=== PATIENT | female | born 1985 | race American Indian/Alaskan Native ===

== ENCOUNTER 2021-03-30 11:03 | Inpatient (IN) | payer MEDICAID, OTHER ==
[2021-03-30] MEDS ORDERED: Sodium Chloride 0.9% 10 ML Syringe FLUSH PRN (11:19)
[2021-03-30] MEDS ORDERED: Sodium Chloride 0.9% 1,000 ML IV ONE (11:21)
[2021-03-30] MEDS ORDERED: Metoclopramide 10 MG/2 ML SDV IVPUSH ONE (11:21)
--- NOTE | 2021-03-30 11:29 | EDM.PDOC ---
ED HPI GENERAL MEDICAL PROBLEM - General Chief Complaint: General Stated Complaint: john amb Time Seen by Provider: 03/30/21 11:10 Source of Information: Reports: Patient, RN Notes Reviewed History Limitations: Reports: No Limitations - History of Present Illness INITIAL COMMENTS - FREE TEXT/NARRATIVE: Patient is a 35-year-old female who presents to the ER via [facility] for the evaluation of her fever. States she has a history of psoriasis, and she noted the area on her right plantar surface and foot seemed to be oozing yellow substance last week and she went to the doctor for management, and she states that the doctor did not really address her foot, but told she had a viral upper respiratory illness and told her to follow-up with dermatology. Patient states for the last 5 days she has been dealing with a fever as high as 105 F at home. Has been using Tylenol and ibuprofen. She states that it seems to break the fever but then the fever come straight back. She did develop nausea with associated vomiting today. States that she has not really had much of an appetite for the last 2 days. She ate about half of a peanut butter and jelly s andwich yesterday and that is about all she has eaten. Other than the fever, nausea and vomiting, she has what she characterizes as a dry intermittent cough but is not very bothersome, no shortness of breath, and states that she had maybe some diarrhea yesterday. Other than the psoriasis she denies any past medical history. Patient has psoriasis-like lesions on her right foot, and bilateral palmar surfaces of her hands. States she has not been using her cream on her hands for the past few days. foot Pain Score (Numeric/FACES): 4 - Related Data Allergies Allergy/AdvReac Type Severity Reaction Status Date / Time latex Allergy Anaphylactic Verified 03/30/21 11:15 Shock Home Meds: Home Meds Multivit No46/Iron/Folate6/Dha [Prenate Essential Softgel] 1 tab PO DAILY 03/30/21 [History] Ubidecarenone [Co Q-10] 200 mg PO DAILY 03/30/21 [History] Venlafaxine [Effexor] 37.5 mg PO DAILY 03/30/21 [History] atenoloL [Atenolol] 50 mg PO DAILY 03/30/21 [History] hydroCHLOROthiazide [Hydrochlorothiazide] 25 mg PO DAILY 03/30/21 [History] lisinopriL [Lisinopril] 25 mg PO DAILY 03/30/21 [History] Past Medical History Cardiovascular History: Reports: Hypertension Psychiatric History: Reports: Depression Dermatologic History: Reports: Psoriasis Social & Family History - Tobacco Use Tobacco Use Status *Q: Former Tobacco User Used Tobacco, but Quit: Yes Month/Year Tobacco Last Used: 03/17/2021 - Recreational Drug Use Recreational Drug Use: No ED ROS GENERAL - Review of Systems Review Of Systems: Comprehensive ROS is negative, except as noted in HPI. ED EXAM, GENERAL - Physical Exam Exam: See Below Exam Limited By: No Limitations General Appearance: Alert, WD/WN, No Apparent Distress Respiratory/Chest: No Respiratory Distress, Lungs Clear, Normal Breath Sounds, No Accessory Muscle Use, Chest Non-Tender Cardiovascular: Normal Peripheral Pulses, Regular Rate, Rhythm, No Edema Peripheral Pulses: 2+: Radial (L), Radial (R) Neurological: Alert, Oriented, Normal Cognition, No Motor/Sensory Deficits Psychiatric: Normal Affect, Normal Mood Skin Exam: Warm, Dry, Normal Color, No Rash, Increased Warmth (To the patient's plantar surface of her foot. Patient has scaling lesions, with an open area on the pad of her right great toe, multiple other areas that seem to be open but not necessarily oozing, again crusting is noted. Few open lesions on palmar surface of hands, seem to crusting but no oozing) Course - Vital Signs Last Recorded V/S: Last Vital Signs Temp 98.4 F 03/30/21 11:09 Pulse 116 H 03/30/21 11:09 Resp 18 03/30/21 11:09 BP 118/81 03/30/21 11:09 Pulse Ox 98 03/30/21 11:09 - Orders/Labs/Meds Orders: Active Orders 24 hr Category Date Time Status Chest 1V Frontal [CR] Stat Exams 03/30/21 11:23 Ordered BLOOD CULTURE [MREF] Stat Lab 03/30/21 11:20 Ordered BLOOD CULTURE [MREF] Stat Lab 03/30/21 11:20 Ordered UA W/JUAN RFLX IF INDICATED [URIN] Stat Lab 03/30/21 11:20 Ordered Potassium Chloride [KCl in Water 10 MEQ/100 ML] 10 meq Med 03/30/21 12:15 Ordered Premix Bag 1 bag IV Q1H Sodium Chloride 0.9% [Saline Flush] Med 03/30/21 11:19 Ordered 10 ml FLUSH ASDIRECTED PRN cefTRIAXone [Rocephin] 2 gm Med 03/30/21 12:53 Ordered Sodium Chloride 0.9% [Normal Saline AdvBag] 100 ml IV ONETIME Blood Culture x2 Reflex Set [OM.PC] Stat Oth 03/30/21 11:20 Ordered Saline Lock Insert [OM.PC] Stat Oth 03/30/21 11:20 Ordered Medication Orders Potassium Chloride 10 meq/ (Premix) 100 mls @ 100 mls/hr IV Q1H OLGA Stop: 03/30/21 16:14 Last Admin: 03/30/21 12:14 Dose: 100 mls/hr Documented by: MARISA Ceftriaxone Sodium 2 gm/ (Sodium Chloride) 100 mls @ 200 mls/hr IV ONETIME ONE Stop: 03/30/21 13:22 Sodium Chloride (Sodium Chloride 0.9% 10 Ml Syringe) 10 ml FLUSH ASDIRECTED PRN PRN Reason: Keep Vein Open Last Admin: 03/30/21 11:33 Dose: 10 ml Documented by: MARISA Labs: Laboratory Tests 03/30/21 03/30/21 03/30/21 Range/Units 10:59 10:59 10:59 WBC 10.56 H (3.98-10.04) K/mm3 RBC 3.77 L (3.98-5.22) M/mm3 Hgb 10.7 L (11.2-15.7) gm/dl Hct 32.9 L (34.1-44.9) % MCV 87.3 (79.4-94.8) fl MCH 28.4 (25.6-32.2) pg MCHC 32.5 (32.2-35.5) g/dl RDW Std Deviation 45.0 (36.4-46.3) fL Plt Count 257 (182-369) K/mm3 MPV 9.9 (9.4-12.3) fl Neutrophils % (Manual) 75 H (40-60) % Band Neutrophils % 0 (0-10) % Lymphocytes % (Manual) 10 L (20-40) % Atypical Lymphs % 0 % Monocytes % (Manual) 15 H (2-10) % Eosinophils % (Manual) 0 L (0.7-5.8) % Basophils % (Manual) 0 L (0.1-1.2) Platelet Estimate Adequate RBC Morph Comment Normal PT 11.7 (9.7-12.0) SECONDS INR 1.06 Sodium 133 L (136-145) mEq/L Potassium 2.6 L (3.5-5.1) mEq/L Chloride 96 L (98-107) mEq/L Carbon Dioxide 28 (21-32) mEq/L Anion Gap 11.6 (5-15) BUN 8 (7-18) mg/dL Creatinine 0.8 (0.55-1.02) mg/dL Est Cr Clr Drug Dosing 77.63 mL/min Estimated GFR (MDRD) > 60 (>60) mL/min BUN/Creatinine Ratio 10.0 L (14-18) Glucose 125 H (70-99) mg/dL Lactic Acid (0.4-2.0) mmol/L Calcium 8.1 L (8.5-10.1) mg/dL Total Bilirubin 0.9 (0.2-1.0) mg/dL AST 35 (15-37) U/L ALT 43 (14-59) U/L Alkaline Phosphatase 70 (46-116) U/L C-Reactive Protein 27.7 H* (<1.0) mg/dL Total Protein 7.3 (6.4-8.2) g/dl Albumin 2.8 L (3.4-5.0) g/dl Globulin 4.5 gm/dL Albumin/Globulin Ratio 0.6 L (1-2) Influenza Type A RNA (NEGATIVE) Influenza Type B RNA (NEGATIVE) SARS-CoV-2 RNA (LUCIA) (NEGATIVE) 03/30/21 03/30/21 Range/Units 11:40 12:08 WBC (3.98-10.04) K/mm3 RBC (3.98-5.22) M/mm3 Hgb (11.2-15.7) gm/dl Hct (34.1-44.9) % MCV (79.4-94.8) fl MCH (25.6-32.2) pg MCHC (32.2-35.5) g/dl RDW Std Deviation (36.4-46.3) fL Plt Count (182-369) K/mm3 MPV (9.4-12.3) fl Neutrophils % (Manual) (40-60) % Band Neutrophils % (0-10) % Lymphocytes % (Manual) (20-40) % Atypical Lymphs % % Monocytes % (Manual) (2-10) % Eosinophils % (Manual) (0.7-5.8) % Basophils % (Manual) (0.1-1.2) Platelet Estimate RBC Morph Comment PT (9.7-12.0) SECONDS INR Sodium (136-145) mEq/L Potassium (3.5-5.1) mEq/L Chloride (98-107) mEq/L Carbon Dioxide (21-32) mEq/L Anion Gap (5-15) BUN (7-18) mg/dL Creatinine (0.55-1.02) mg/dL Est Cr Clr Drug Dosing mL/min Estimated GFR (MDRD) (>60) mL/min BUN/Creatinine Ratio (14-18) Glucose (70-99) mg/dL Lactic Acid 1.5 (0.4-2.0) mmol/L Calcium (8.5-10.1) mg/dL Total Bilirubin (0.2-1.0) mg/dL AST (15-37) U/L ALT (14-59) U/L Alkaline Phosphatase (46-116) U/L C-Reactive Protein (<1.0) mg/dL Total Protein (6.4-8.2) g/dl Albumin (3.4-5.0) g/dl Globulin gm/dL Albumin/Globulin Ratio (1-2) Influenza Type A RNA Negative (NEGATIVE) Influenza Type B RNA Negative (NEGATIVE) SARS-CoV-2 RNA (LUCIA) Negative (NEGATIVE) Meds: Medications Generic Name Dose Route Start Last Admin Trade Name Freq PRN Reason Stop Dose Admin Potassium Chloride 10 meq/ 100 mls @ 100 mls/hr 03/30/21 12:15 03/30/21 12:14 Premix IV 03/30/21 16:14 100 mls/hr Q1H OLGA Administration Ceftriaxone Sodium 2 gm/ 100 mls @ 200 mls/hr 03/30/21 12:53 Sodium Chloride IV 03/30/21 13:22 ONETIME ONE Sodium Chloride 10 ml 03/30/21 11:19 03/30/21 11:33 Sodium Chloride 0.9% 10 Ml Syringe FLUSH 10 ml ASDIRECTED PRN Administration Keep Vein Open Discontinued Medications Generic Name Dose Route Start Last Admin Trade Name Breanna PRN Reason Stop Dose Admin Sodium Chloride 1,000 mls @ 999 mls/hr 03/30/21 11:21 03/30/21 11:33 Normal Saline IV 03/30/21 12:21 999 mls/hr ONETIME ONE Administration Metoclopramide HCl 10 mg 03/30/21 11:21 03/30/21 11:33 Metoclopramide 10 Mg/2 Ml Sdv IVPUSH 03/30/21 11:22 10 mg ONETIME ONE Administration Potassium Chloride 40 meq 03/30/21 12:01 03/30/21 12:14 Potassium Chloride 20 Meq Tab.Er PO 03/30/21 12:02 40 meq ONETIME ONE Administration - Re-Assessments/Exams Free Text/Narrative Re-Assessment/Exam: 03/30/21 11:29 Patient presents to the ER for evaluation of her fever. We will go ahead and do more of a septic work-up for evaluation to include lactic acid, blood cultures, basic labs; CBC, CMP, CRP, will get a urine and a chest x-ray to rule out infection in those areas however I am fairly certain that it is her foot that is a source of infection. Also get a COVID-19 swab as the patient will likely need hospitalization. We will give her some fluids and Reglan at this time due to her not eating or drinking much in the past day or 2. She was given 4 mg Zofran in the ambulance but states that this did not seem to help much. 03/30/21 12:02 White cell count is elevated at 10.5 with 75% neutrophils on the auto differential. Metabolic panel impressive for a low potassium at 2.6, and I did order 40 mEq oral and 40 mEq IV at this time. Patient's CRP is markedly elevated at 27.7. Still some labs pending at this time. 03/30/21 12:43 Lactic acid is within normal limits at 1.5. 03/30/21 13:00 Was able to talk with Dr. Parra our hospitalist, and he will accept the patient for cellulitis and hypokalemia. I do believe the hypokalemia is secondary to hydrochlorothiazide therapy. We will go ahead and give the patient 2 g Rocephin for management. We will await Covid screen to see about nursing room placement and then get her transferred to the hospital for further management. Departure - Departure Time of Disposition: 13:00 Disposition: Admitted As Inpatient 66 Condition: Good Clinical Impression: Cellulitis of foot, right, Hypokalemia - Discharge Information Forms: ED Department Discharge Sepsis Event Note (ED) - Evaluation Sepsis Screening Result: No Definite Risk - Focused Exam Vital Signs: Vital Signs Temp Pulse Resp BP Pulse Ox 03/30/21 11:09 98.4 F 116 H 18 118/81 98 - My Orders Last 24 Hours: My Active Orders 03/30/21 11:19 Sodium Chloride 0.9% [Saline Flush] 10 ml FLUSH ASDIRECTED PRN 03/30/21 11:20 BLOOD CULTURE [MREF] Stat BLOOD CULTURE [MREF] Stat UA W/JUAN RFLX IF INDICATED [URIN] Stat Blood Culture x2 Reflex Set [OM.PC] Stat Saline Lock Insert [OM.PC] Stat 03/30/21 11:23 Chest 1V Frontal [CR] Stat 03/30/21 12:15 Potassium Chloride [KCl in Water 10 MEQ/100 ML] 10 meq Premix Bag 1 bag IV Q1H 03/30/21 12:53 cefTRIAXone [Rocephin] 2 gm Sodium Chloride 0.9% [Normal Saline AdvBag] 100 ml IV ONETIME - Assessment/Plan Last 24 Hours: My Active Orders 03/30/21 11:19 Sodium Chloride 0.9% [Saline Flush] 10 ml FLUSH ASDIRECTED PRN 03/30/21 11:20 BLOOD CULTURE [MREF] Stat BLOOD CULTURE [MREF] Stat UA W/JUAN RFLX IF INDICATED [URIN] Stat Blood Culture x2 Reflex Set [OM.PC] Stat Saline Lock Insert [OM.PC] Stat 03/30/21 11:23 Chest 1V Frontal [CR] Stat 03/30/21 12:15 Potassium Chloride [KCl in Water 10 MEQ/100 ML] 10 meq Premix Bag 1 bag IV Q1H 03/30/21 12:53 cefTRIAXone [Rocephin] 2 gm Sodium Chloride 0.9% [Normal Saline AdvBag] 100 ml IV ONETIME
[2021-03-30] MEDS ORDERED: Potassium Chloride 20 MEQ Tab.ER PO ONE (12:01)
[2021-03-30] MEDS: Potassium Chloride 10 MEQ in Premix Bag 1 BAG IV SCH ×4 (12:14→15:22)
[2021-03-30] MEDS ORDERED: cefTRIAXone 2 GM in Sodium Chloride 0.9% 100 ML IV ONE (12:53)
[2021-03-30 12:55] LABS: CORONAVIRUS COVID-19 NAA NEGATIVE (NEGATIVE)
--- NOTE | 2021-03-30 14:58 | CR ---
Chest: Portable view of the chest was obtained. Comparison: No prior chest imaging is available. Heart size and mediastinum are within normal limits. Lungs are clear with no acute parenchymal change. Bony structures show nothing acute. Impression: 1. Nothing acute is seen on portable chest x-ray. Diagnostic code #1
[2021-03-30] MEDS ORDERED: Acetaminophen 325 MG Tab PO PRN (15:29)
[2021-03-30] MEDS ORDERED: Ibuprofen 600 MG Tab PO PRN (15:29)
[2021-03-30] MEDS ORDERED: Temazepam 15 MG Cap PO PRN (15:29)
--- NOTE | 2021-03-30 15:29 | PCM.HP.2 ---
H&P History of Present Illness - General Date of Service: 03/30/21 Admit Problem/Dx: Admission Diagnosis/Problem Admission Diagnosis/Problem Cellulitis - History of Present Illness Initial Comments - Free Text/Narative: 35-year-old female with history of severe psoriasis, followed by dermatology in [place], presents to the emergency department via [facility] for evaluation of fever. Patient states proxy 1 week ago she put Vaseline on her feet for her psoriasis as directed by her pay agent, but she did not wrap it with Saran wrap. She states that she must have scratched the bottom of her foot in the middle the night and tore off a piece of the psoriatic plaque. She has had worsening pain since then and a fever as high as 105 at home. She was seen at the walk-in clinic, but not started on any treatment. She has been using Tylenol and ibuprofen alternately for the fever. 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 Now the foot is exquisitely tender especially over the ball of the right foot. She has yellow discharge emanating from the ball of foot. Patient does take lisinopril, hydrochlorothiazide, And atenolol for her hypertension. She was significantly low and her potassium. Potassium was 2.6. foot Pain Score (Numeric/FACES): 4 - Related Data Allergies/Adverse Reactions: Allergies Allergy/AdvReac Type Severity Reaction Status Date / Time bee pollen Allergy Hives Verified 03/30/21 14:21 Influenza Virus Vaccines Allergy Other Verified 03/30/21 14:21 latex Allergy Anaphylactic Verified 03/30/21 11:15 Shock Home Medications: Home Meds Venlafaxine HCl [Venlafaxine ER] 37.5 mg PO DAILY 03/30/21 [History] atenoloL [Atenolol] 50 mg PO DAILY 03/30/21 [History] hydroCHLOROthiazide [Hydrochlorothiazide] 25 mg PO DAILY 03/30/21 [History] lisinopriL [Lisinopril] 25 mg PO DAILY 03/30/21 [History] Past Medical History HEENT History: Reports: Other (See Below) Other HEENT History: wears glasses Cardiovascular History: Reports: Hypertension Gastrointestinal History: Reports: None 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 Dermatologic History: Reports: Psoriasis - Past Surgical History HEENT Surgical History: Reports: None Cardiovascular Surgical History: Reports: None GI Surgical History: Reports: Appendectomy Dermatological Surgical History: Reports: None Social & Family History - Family History Family Medical History: No Pertinent Family History - Tobacco Use Tobacco Use Status *Q: Former Tobacco User Used Tobacco, but Quit: Yes Month/Year Tobacco Last Used: February 2021 - Caffeine Use Caffeine Use: Reports: Coffee, Energy Drinks - Recreational Drug Use Recreational Drug Use: No H&P Review of Systems - Review of Systems: Review Of Systems: Comprehensive ROS is negative, except as noted in HPI. Exam - Exam Exam: See Below - Vital Signs Vital Signs: Last Vital Signs Temp 99.0 F 03/30/21 14:18 Pulse 107 H 03/30/21 14:18 Resp 18 03/30/21 14:18 BP 121/67 03/30/21 14:18 Pulse Ox 98 03/30/21 14:18 Weight: 239 lb 8 oz - Exam Quality Assessment: No: Supplemental Oxygen General: Alert, Oriented, 4 HEENT: Conjunctiva Clear, Hearing Intact, Mucosa Moist & [place], Normal Nasal Septum Neck: Supple, Trachea Midline, 2 Lungs: Clear to Auscultation, Normal Respiratory Effort Cardiovascular: Regular Rate, Regular Rhythm GI/Abdominal Exam: Normal Bowel Sounds, Soft, Non-Tender, No Organomegaly, No Di stention, No Abnormal Bruit, No Mass Extremities: No Pedal Edema, Normal Capillary Refill, Other (Psoriatic plaques on both hands and feet. Right bottom of her foot shows erythematous area at the ball of the foot with exquisite tenderness. There is a pinpoint area that sug gest some purulent discharge but I was unable to express it at this time. The area does feel somewhat fluctuant.) Neuro Extensive - Mental Status: Alert, Oriented x3, Normal Mood/Affect, Normal Cognition, Memory Intact Psychiatric: Alert, Normal Affect, Normal Mood - Patient Data Lab Results Last 24 hrs: Laboratory Results - last 24 hr 03/30/21 03/30/21 03/30/21 Range/Units 10:59 10:59 10:59 WBC 10.56 H (3.98-10.04) K/mm3 RBC 3.77 L (3.98-5.22) M/mm3 Hgb 10.7 L (11.2-15.7) gm/dl Hct 32.9 L (34.1-44.9) % MCV 87.3 (79.4-94.8) fl MCH 28.4 (25.6-32.2) pg MCHC 32.5 (32.2-35.5) g/dl RDW Std Deviation 45.0 (36.4-46.3) fL Plt Count 257 (182-369) K/mm3 MPV 9.9 (9.4-12.3) fl Neutrophils % (Manual) 75 H (40-60) % Band Neutrophils % 0 (0-10) % Lymphocytes % (Manual) 10 L (20-40) % Atypical Lymphs % 0 % Monocytes % (Manual) 15 H (2-10) % Eosinophils % (Manual) 0 L (0.7-5.8) % Basophils % (Manual) 0 L (0.1-1.2) Platelet Estimate Adequate RBC Morph Comment Normal PT 11.7 (9.7-12.0) SECONDS INR 1.06 Sodium 133 L (136-145) mEq/L Potassium 2.6 L (3.5-5.1) mEq/L Chloride 96 L (98-107) mEq/L Carbon Dioxide 28 (21-32) mEq/L Anion Gap 11.6 (5-15) BUN 8 (7-18) mg/dL Creatinine 0.8 (0.55-1.02) mg/dL Est Cr Clr Drug Dosing 77.63 mL/min Estimated GFR (MDRD) > 60 (>60) mL/min BUN/Creatinine Ratio 10.0 L (14-18) Glucose 125 H (70-99) mg/dL Lactic Acid (0.4-2.0) mmol/L Calcium 8.1 L (8.5-10.1) mg/dL Total Bilirubin 0.9 (0.2-1.0) mg/dL AST 35 (15-37) U/L ALT 43 (14-59) U/L Alkaline Phosphatase 70 (46-116) U/L C-Reactive Protein 27.7 H* (<1.0) mg/dL Total Protein 7.3 (6.4-8.2) g/dl Albumin 2.8 L (3.4-5.0) g/dl Globulin 4.5 gm/dL Albumin/Globulin Ratio 0.6 L (1-2) Influenza Type A RNA (NEGATIVE) Influenza Type B RNA (NEGATIVE) SARS-CoV-2 RNA (LUCIA) (NEGATIVE) 03/30/21 03/30/21 Range/Units 11:40 12:08 WBC (3.98-10.04) K/mm3 RBC (3.98-5.22) M/mm3 Hgb (11.2-15.7) gm/dl Hct (34.1-44.9) % MCV (79.4-94.8) fl MCH (25.6-32.2) pg MCHC (32.2-35.5) g/dl RDW Std Deviation (36.4-46.3) fL Plt Count (182-369) K/mm3 MPV (9.4-12.3) fl Neutrophils % (Manual) (40-60) % Band Neutrophils % (0-10) % Lymphocytes % (Manual) (20-40) % Atypical Lymphs % % Monocytes % (Manual) (2-10) % Eosinophils % (Manual) (0.7-5.8) % Basophils % (Manual) (0.1-1.2) Platelet Estimate RBC Morph Comment PT (9.7-12.0) SECONDS INR Sodium (136-145) mEq/L Potassium (3.5-5.1) mEq/L Chloride (98-107) mEq/L Carbon Dioxide (21-32) mEq/L Anion Gap (5-15) BUN (7-18) mg/dL Creatinine (0.55-1.02) mg/dL Est Cr Clr Drug Dosing mL/min Estimated GFR (MDRD) (>60) mL/min BUN/Creatinine Ratio (14-18) Glucose (70-99) mg/dL Lactic Acid 1.5 (0.4-2.0) mmol/L Calcium (8.5-10.1) mg/dL Total Bilirubin (0.2-1.0) mg/dL AST (15-37) U/L ALT (14-59) U/L Alkaline Phosphatase (46-116) U/L C-Reactive Protein (<1.0) mg/dL Total Protein (6.4-8.2) g/dl Albumin (3.4-5.0) g/dl Globulin gm/dL Albumin/Globulin Ratio (1-2) Influenza Type A RNA Negative (NEGATIVE) Influenza Type B RNA Negative (NEGATIVE) SARS-CoV-2 RNA (LUCIA) Negative (NEGATIVE) Result Diagrams: 03/30/21 10:59 03/30/21 10:59 Sepsis Event Note - Evaluation Sepsis Screening Result: No Definite Risk - Focused Exam Vital Signs: Vital Signs Temp Temp Pulse Pulse Resp BP BP 03/30/21 14:18 99.0 F 107 H 18 121/67 03/30/21 11:09 98.4 F 116 H 18 118/81 Pulse Ox 03/30/21 14:18 98 03/30/21 11:09 98 - Problem List (1) Hypertension SNOMED Code(s): 59819830 ICD Code: I10 - ESSENTIAL (PRIMARY) HYPERTENSION Status: Acute Current Visit: Yes (2) Cellulitis of foot, right SNOMED Code(s): 840586751 ICD Code: L03.115 - CELLULITIS OF RIGHT LOWER LIMB Status: Acute Current Visit: Yes (3) Hypokalemia SNOMED Code(s): 99091396 ICD Code: E87.6 - HYPOKALEMIA Status: Acute Current Visit: Yes Problem List Initiated/Reviewed/Updated: Yes Orders Last 24hrs: Active Orders 24 hr Category Date Time Status Admission Status [Patient Status] [ADT] Routine ADT 03/30/21 13:18 Active BLOOD CULTURE [MREF] Stat Lab 03/30/21 11:40 Received BLOOD CULTURE [MREF] Stat Lab 03/30/21 11:43 Received UA W/JUAN RFLX IF INDICATED [URIN] Stat Lab 03/30/21 11:20 Ordered Potassium Chloride [KCl in Water 10 MEQ/100 ML] 10 meq Med 03/30/21 12:15 Active Premix Bag 1 bag IV Q1H Sodium Chloride 0.9% [Saline Flush] Med 03/30/21 11:19 Active 10 ml FLUSH ASDIRECTED PRN Blood Culture x2 Reflex Set [OM.PC] Stat Oth 03/30/21 11:20 Ordered Saline Lock Insert [OM.PC] Stat Oth 03/30/21 11:20 Ordered Medication Orders Potassium Chloride 10 meq/ (Premix) 100 mls @ 100 mls/hr IV Q1H OLGA Stop: 03/30/21 16:14 Last Admin: 03/30/21 15:22 Dose: 100 mls/hr Documented by: Infusion: 03/30/21 15:20 Dose: 100 mls/hr Documented by: Admin: 03/30/21 14:20 Dose: 100 mls/hr Documented by: Infusion: 03/30/21 14:13 Dose: 100 mls/hr Documented by: Admin: 03/30/21 13:13 Dose: 100 mls/hr Documented by: Infusion: 03/30/21 13:13 Dose: 100 mls/hr Documented by: Admin: 03/30/21 12:14 Dose: 100 mls/hr Documented by: MARISA Sodium Chloride (Sodium Chloride 0.9% 10 Ml Syringe) 10 ml FLUSH ASDIRECTED PRN PRN Reason: Keep Vein Open Last Admin: 03/30/21 11:33 Dose: 10 ml Documented by: MARISA Assessment/Plan Comment:: 35-year-old female with history of hypertension and psoriasis presents to the emergency department with right-sided foot pain, fever, and discharge. Cellulitis of the plantar surface of the right foot * Exquisitely tender and erythematous and warm right ball of the foot. * WBC of 10.6 with 75% neutrophils and no bands. CRP 27.7. Normal lactic acid of 1.5. * Blood cultures and Rocephin started in the emergency department. Hypokalemia * Potassium 2.6 * Likely secondary to poor oral intake and thiazide diuretic * Given 40 mEq p.o. in the emergency department followed by 40 mEq IV Hypertension * Home medications include atenolol, lisinopril, and hydrochlorothiazide * She did not receive her medications this morning. Plan * Admit to medical floor for IV antibiotics * X-ray right foot * May need to consult orthopedics * Await blood cultures * Continue Rocephin * PT for wound therapy * Recheck CBC, CMP, CRP in the morning * Check hemoglobin A1c. Patient states she has family history of diabetes * VTE prophylaxis with Lovenox * CODE STATUS: Full code - Mortality Measure Prognosis:: Good
[2021-03-30] MEDS ORDERED: Hydrochlorothiazide 25 MG Tab PO SCH (15:45)
[2021-03-30] MEDS ORDERED: Venlafaxine 37.5 MG Tab PO SCH (15:45)
[2021-03-30] MEDS: Lisinopril 10 MG Tab PO SCH (15:53)
[2021-03-30] MEDS: Atenolol 50 MG Tab PO SCH (15:54)
[2021-03-30] MEDS: Venlafaxine 37.5 MG Cap.ER PO SCH (16:37)
--- NOTE | 2021-03-30 17:48 | CR ---
Right foot: 2 views of the right foot were obtained. Comparison: No prior foot exam is available. Plantar spur is noted. Minimal spur is noted at the attachment of the Achilles tendon to the calcaneus. Joint spaces are fairly well preserved. No focal erosions are seen. No acute fracture or other bony abnormality is appreciated. Impression: 1. Calcaneal spurs. 2. Two-view right foot study is otherwise unremarkable. Diagnostic code #2
[2021-03-30] MEDS: Bacitracin Oint 15 GM Tube TOP SCH (21:06)
[2021-03-30] MEDS: Calcium Carbonate 500 MG Tab.Chew PO PRN (21:07)
[2021-03-31 08:04] LABS: HEMOGLOBIN A1C 6.2 %
--- NOTE | 2021-03-31 08:06 | PCM.PN ---
<Candido Chicas - Last Filed: 03/31/21 12:03> - General Info Date of Service: 03/31/21 Admission Dx/Problem (Free Text): Admission Diagnosis/Problem Admission Diagnosis/Problem Cellulitis Functional Status: Reports: Pain Controlled, Tolerating Diet, Ambulating, Urinating. Denies: New Symptoms - Review of Systems General: Reports: No Symptoms. Denies: Fever, Weakness, Fatigue, Malaise, Chills HEENT: Reports: Headaches. Denies: Sore Throat Pulmonary: Reports: No Symptoms. Denies: Shortness of Breath, Cough, Sputum, Wheezing Cardiovascular: Reports: No Symptoms. Denies: Chest Pain, Palpitations, Dyspnea on Exertion, Edema, Lightheadedness Gastrointestinal: Reports: No Symptoms. Denies: Abdominal Pain, Constipation, Diarrhea, Nausea, Vomiting Genitourinary: Reports: No Symptoms. Denies: Pain Musculoskeletal: Reports: Foot Pain. Denies: Leg Pain, Joint Pain, Joint Swelling Skin: Reports: No Symptoms Neurological: Reports: Difficulty Walking. Denies: Confusion, Dizziness, Headache, Numbness, Pre-Existing Deficit, Seizure, Syncope, Tingling, Trouble Speaking, Weakness, Change in Speech, Gait Disturbance Psychiatric: Reports: No Symptoms - Patient Data Vitals - Most Recent: Last Vital Signs Temp 98.2 F 03/31/21 03:47 Pulse 80 03/31/21 03:47 Resp 20 03/31/21 03:47 BP 109/57 L 03/31/21 03:47 Pulse Ox 98 03/31/21 03:47 Weight - Most Recent: 242 lb 3.2 oz I&O - Last 24 Hours: Intake & Output 03/30/21 03/31/21 03/31/21 22:59 06:59 14:59 Intake Total 1850 1000 Output Total 300 1250 Balance 1550 -250 Lab Results Last 24 Hours: Laboratory Results - last 24 hr 03/30/21 03/30/21 03/30/21 Range/Units 10:59 10:59 10:59 WBC 10.56 H (3.98-10.04) K/mm3 RBC 3.77 L (3.98-5.22) M/mm3 Hgb 10.7 L (11.2-15.7) gm/dl Hct 32.9 L (34.1-44.9) % MCV 87.3 (79.4-94.8) fl MCH 28.4 (25.6-32.2) pg MCHC 32.5 (32.2-35.5) g/dl RDW Std Deviation 45.0 (36.4-46.3) fL Plt Count 257 (182-369) K/mm3 MPV 9.9 (9.4-12.3) fl Neut % (Auto) (34.0-71.1) % Lymph % (Auto) (19.3-51.7) % Blanco % (Auto) (4.7-12.5) % Eos % (Auto) (0.7-5.8) Baso % (Auto) (0.1-1.2) % Neut # (Auto) (1.56-6.13) K/mm3 Lymph # (Auto) (1.18-3.74) K/mm3 Blanco # (Auto) (0.24-0.36) K/mm3 Eos # (Auto) (0.04-0.36) K/mm3 Baso # (Auto) (0.01-0.08) K/mm3 Neutrophils % (Manual) 75 H (40-60) % Band Neutrophils % 0 (0-10) % Lymphocytes % (Manual) 10 L (20-40) % Atypical Lymphs % 0 % Monocytes % (Manual) 15 H (2-10) % Eosinophils % (Manual) 0 L (0.7-5.8) % Basophils % (Manual) 0 L (0.1-1.2) Platelet Estimate Adequate RBC Morph Comment Normal PT 11.7 (9.7-12.0) SECONDS INR 1.06 Sodium 133 L (136-145) mEq/L Potassium 2.6 L (3.5-5.1) mEq/L Chloride 96 L (98-107) mEq/L Carbon Dioxide 28 (21-32) mEq/L Anion Gap 11.6 (5-15) BUN 8 (7-18) mg/dL Creatinine 0.8 (0.55-1.02) mg/dL Est Cr Clr Drug Dosing 77.63 mL/min Estimated GFR (MDRD) > 60 (>60) mL/min BUN/Creatinine Ratio 10.0 L (14-18) Glucose 125 H (70-99) mg/dL Lactic Acid (0.4-2.0) mmol/L Calcium 8.1 L (8.5-10.1) mg/dL Magnesium (1.8-2.4) mg/dL Total Bilirubin 0.9 (0.2-1.0) mg/dL AST 35 (15-37) U/L ALT 43 (14-59) U/L Alkaline Phosphatase 70 (46-116) U/L C-Reactive Protein 27.7 H* (<1.0) mg/dL Total Protein 7.3 (6.4-8.2) g/dl Albumin 2.8 L (3.4-5.0) g/dl Globulin 4.5 gm/dL Albumin/Globulin Ratio 0.6 L (1-2) TSH 3rd Generation (0.358-3.74) uIU/mL Urine Color (Yellow) Urine Appearance (Clear) Urine pH (5.0-8.0) Ur Specific Mobile (1.005-1.030) Urine Protein (Negative) Urine Glucose (UA) (Negative) Urine Ketones (Negative) Urine Occult Blood (Negative) Urine Nitrite (Negative) Urine Bilirubin (Negative) Urine Urobilinogen (0.2-1.0) Ur Leukocyte Esterase (Negative) Urine RBC (0-5) /hpf Urine WBC (0-5) /hpf Ur Squamous Epith Cells (0-5) /hpf Urine Bacteria (FEW) /hpf Urine Mucus (FEW) /hpf Influenza Type A RNA (NEGATIVE) Influenza Type B RNA (NEGATIVE) SARS-CoV-2 RNA (LUCIA) (NEGATIVE) 03/30/21 03/30/21 03/30/21 Range/Units 11:40 12:08 17:20 WBC (3.98-10.04) K/mm3 RBC (3.98-5.22) M/mm3 Hgb (11.2-15.7) gm/dl Hct (34.1-44.9) % MCV (79.4-94.8) fl MCH (25.6-32.2) pg MCHC (32.2-35.5) g/dl RDW Std Deviation (36.4-46.3) fL Plt Count (182-369) K/mm3 MPV (9.4-12.3) fl Neut % (Auto) (34.0-71.1) % Lymph % (Auto) (19.3-51.7) % Blanco % (Auto) (4.7-12.5) % Eos % (Auto) (0.7-5.8) Baso % (Auto) (0.1-1.2) % Neut # (Auto) (1.56-6.13) K/mm3 Lymph # (Auto) (1.18-3.74) K/mm3 Blanco # (Auto) (0.24-0.36) K/mm3 Eos # (Auto) (0.04-0.36) K/mm3 Baso # (Auto) (0.01-0.08) K/mm3 Neutrophils % (Manual) (40-60) % Band Neutrophils % (0-10) % Lymphocytes % (Manual) (20-40) % Atypical Lymphs % % Monocytes % (Manual) (2-10) % Eosinophils % (Manual) (0.7-5.8) % Basophils % (Manual) (0.1-1.2) Platelet Estimate RBC Morph Comment PT (9.7-12.0) SECONDS INR Sodium (136-145) mEq/L Potassium (3.5-5.1) mEq/L Chloride (98-107) mEq/L Carbon Dioxide (21-32) mEq/L Anion Gap (5-15) BUN (7-18) mg/dL Creatinine (0.55-1.02) mg/dL Est Cr Clr Drug Dosing mL/min Estimated GFR (MDRD) (>60) mL/min BUN/Creatinine Ratio (14-18) Glucose (70-99) mg/dL Lactic Acid 1.5 (0.4-2.0) mmol/L Calcium (8.5-10.1) mg/dL Magnesium (1.8-2.4) mg/dL Total Bilirubin (0.2-1.0) mg/dL AST (15-37) U/L ALT (14-59) U/L Alkaline Phosphatase (46-116) U/L C-Reactive Protein (<1.0) mg/dL Total Protein (6.4-8.2) g/dl Albumin (3.4-5.0) g/dl Globulin gm/dL Albumin/Globulin Ratio (1-2) TSH 3rd Generation (0.358-3.74) uIU/mL Urine Color Yellow (Yellow) Urine Appearance Clear (Clear) Urine pH 7.0 (5.0-8.0) Ur Specific Mobile 1.020 (1.005-1.030) Urine Protein Negative (Negative) Urine Glucose (UA) Negative (Negative) Urine Ketones Negative (Negative) Urine Occult Blood 1+ H (Negative) Urine Nitrite Negative (Negative) Urine Bilirubin Negative (Negative) Urine Urobilinogen 0.2 (0.2-1.0) Ur Leukocyte Esterase Negative (Negative) Urine RBC 5-10 H (0-5) /hpf Urine WBC 5-10 H (0-5) /hpf Ur Squamous Epith Cells 10-20 H (0-5) /hpf Urine Bacteria Moderate H (FEW) /hpf Urine Mucus Not seen (FEW) /hpf Influenza Type A RNA Negative (NEGATIVE) Influenza Type B RNA Negative (NEGATIVE) SARS-CoV-2 RNA (LUCIA) Negative (NEGATIVE) 03/31/21 03/31/21 Range/Units 05:45 05:45 WBC 7.44 (3.98-10.04) K/mm3 RBC 3.54 L (3.98-5.22) M/mm3 Hgb 9.9 L (11.2-15.7) gm/dl Hct 31.6 L (34.1-44.9) % MCV 89.3 (79.4-94.8) fl MCH 28.0 (25.6-32.2) pg MCHC 31.3 L (32.2-35.5) g/dl RDW Std Deviation 45.8 (36.4-46.3) fL Plt Count 246 (182-369) K/mm3 MPV 9.8 (9.4-12.3) fl Neut % (Auto) 71.7 H (34.0-71.1) % Lymph % (Auto) 11.7 L (19.3-51.7) % Blanco % (Auto) 14.9 H (4.7-12.5) % Eos % (Auto) 0.9 (0.7-5.8) Baso % (Auto) 0.3 (0.1-1.2) % Neut # (Auto) 5.33 (1.56-6.13) K/mm3 Lymph # (Auto) 0.87 L (1.18-3.74) K/mm3 Blanco # (Auto) 1.11 H (0.24-0.36) K/mm3 Eos # (Auto) 0.07 (0.04-0.36) K/mm3 Baso # (Auto) 0.02 (0.01-0.08) K/mm3 Neutrophils % (Manual) (40-60) % Band Neutrophils % (0-10) % Lymphocytes % (Manual) (20-40) % Atypical Lymphs % % Monocytes % (Manual) (2-10) % Eosinophils % (Manual) (0.7-5.8) % Basophils % (Manual) (0.1-1.2) Platelet Estimate RBC Morph Comment PT (9.7-12.0) SECONDS INR Sodium 138 (136-145) mEq/L Potassium 3.0 L (3.5-5.1) mEq/L Chloride 100 (98-107) mEq/L Carbon Dioxide 26 (21-32) mEq/L Anion Gap 15.0 (5-15) BUN 7 (7-18) mg/dL Creatinine 0.6 (0.55-1.02) mg/dL Est Cr Clr Drug Dosing 103.50 mL/min Estimated GFR (MDRD) > 60 (>60) mL/min BUN/Creatinine Ratio 11.7 L (14-18) Glucose 110 H (70-99) mg/dL Lactic Acid (0.4-2.0) mmol/L Calcium 8.1 L (8.5-10.1) mg/dL Magnesium 2.1 (1.8-2.4) mg/dL Total Bilirubin (0.2-1.0) mg/dL AST (15-37) U/L ALT (14-59) U/L Alkaline Phosphatase (46-116) U/L C-Reactive Protein 26.7 H* (<1.0) mg/dL Total Protein (6.4-8.2) g/dl Albumin (3.4-5.0) g/dl Globulin gm/dL Albumin/Globulin Ratio (1-2) TSH 3rd Generation 0.871 (0.358-3.74) uIU/mL Urine Color (Yellow) Urine Appearance (Clear) Urine pH (5.0-8.0) Ur Specific Mobile (1.005-1.030) Urine Protein (Negative) Urine Glucose (UA) (Negative) Urine Ketones (Negative) Urine Occult Blood (Negative) Urine Nitrite (Negative) Urine Bilirubin (Negative) Urine Urobilinogen (0.2-1.0) Ur Leukocyte Esterase (Negative) Urine RBC (0-5) /hpf Urine WBC (0-5) /hpf Ur Squamous Epith Cells (0-5) /hpf Urine Bacteria (FEW) /hpf Urine Mucus (FEW) /hpf Influenza Type A RNA (NEGATIVE) Influenza Type B RNA (NEGATIVE) SARS-CoV-2 RNA (LUCIA) (NEGATIVE) Med Orders - Current: Current Medications Acetaminophen (Acetaminophen 325 Mg Tab) 650 mg PO Q4H PRN PRN Reason: Pain (Mild 1-3)/fever Last Admin: 03/30/21 21:05 Dose: 650 mg Documented by: Atenolol (Atenolol 50 Mg Tab) 50 mg PO DAILY [facility] Last Admin: 03/30/21 15:54 Dose: 50 mg Documented by: Bacitracin (Bacitracin Oint 15 Gm Tube) 0 gm TOP TID [facility] [place] Last Admin: 03/30/21 21:06 Dose: 1 applic Documented by: Calcium Carbonate/Glycine (Calcium Carbonate 500 Mg Tab.Chew) 1,000 mg PO Q2H PRN PRN Reason: Indigestion Last Admin: 03/30/21 21:07 Dose: 1,000 mg Documented by: Enoxaparin Sodium (Enoxaparin 40 Mg/0.4 Ml Syringe) 40 mg SUBCUT DAILY [facility] [place] Ibuprofen (Ibuprofen 600 Mg Tab) 600 mg PO Q6H PRN PRN Reason: Pain (moderate 4-6) Lisinopril (Lisinopril 10 Mg Tab) 25 mg PO DAILY [facility] [place] Last Admin: 03/30/21 15:53 Dose: 25 mg Documented by: Sodium Chloride (Sodium Chloride 0.9% 10 Ml Syringe) 10 ml FLUSH ASDIRECTED PRN PRN Reason: Keep Vein Open Last Admin: 03/30/21 11:33 Dose: 10 ml Documented by: Temazepam (Temazepam 15 Mg Cap) 15 mg PO BEDTIME PRN PRN Reason: Sleep Venlafaxine HCl (Venlafaxine 37.5 Mg Cap.Er) 37.5 mg PO DAILY [facility] [place] Last Admin: 03/30/21 16:37 Dose: 37.5 mg Documented by: Discontinued Medications Hydrochlorothiazide (Hydrochlorothiazide 25 Mg Tab) 25 mg PO DAILY [facility] [place] Last Admin: 03/30/21 15:53 Dose: 25 mg Documented by: Sodium Chloride (Normal Saline) 1,000 mls @ 999 mls/hr IV ONETIME ONE Stop: 03/30/21 12:21 Last Admin: 03/30/21 11:33 Dose: 999 mls/hr Documented by: Potassium Chloride 10 meq/ (Premix) 100 mls @ 100 mls/hr IV Q1H OLGA Stop: 03/30/21 16:14 Last Admin: 03/30/21 15:22 Dose: 100 mls/hr Documented by: Ceftriaxone Sodium 2 gm/ (Sodium Chloride) 100 mls @ 200 mls/hr IV ONETIME ONE Stop: 03/30/21 13:22 Last Admin: 03/30/21 13:06 Dose: 200 mls/hr Documented by: Metoclopramide HCl (Metoclopramide 10 Mg/2 Ml Sdv) 10 mg IVPUSH ONETIME ONE Stop: 03/30/21 11:22 Last Admin: 03/30/21 11:33 Dose: 10 mg Documented by: Potassium Chloride (Potassium Chloride 20 Meq Tab.Er) 40 meq PO ONETIME ONE Stop: 03/30/21 12:02 Last Admin: 03/30/21 12:14 Dose: 40 meq Documented by: Venlafaxine HCl (Venlafaxine 37.5 Mg Tab) 37.5 mg PO DAILY [facility] [place] Last Admin: 03/30/21 16:30 Dose: Not Given Documented by: - Exam Quality Assessment: Supplemental Oxygen, DVT Prophylaxis General: Alert, Oriented, Cooperative, No Acute Distress HEENT: Pupils Equal, Pupils Reactive, Mucous Membr. Moist/Park[place] Neck: Supple, Trachea Midline Lungs: Clear to Auscultation, Normal Respiratory Effort Cardiovascular: Regular Rate, Regular Rhythm GI/Abdominal Exam: Normal Bowel Sounds, Soft, Non-Tender, No Distention (Female) Exam: Deferred Back Exam: Normal Inspection, Full Range of Motion Extremities: Normal Range of Motion, Non-Tender, No Pedal Edema, Normal Capillary Refill, Other (Significant psoriatic plaques on bilateral hands and feet. Small ulceration on right ball of foot with minimal erythema and no drainage.) Skin: Warm, Dry, Intact Wound/Incisions: Healing Well, No Drainage, Erythema Improving Neurological: No New Focal Deficit Psy/Mental Status: Alert, Normal Affect, Normal Mood - Patient Data Lab Results Last 24 hrs: Laboratory Results - last 24 hr 03/30/21 03/30/21 03/30/21 Range/Units 10:59 10:59 10:59 WBC 10.56 H (3.98-10.04) K/mm3 RBC 3.77 L (3.98-5.22) M/mm3 Hgb 10.7 L (11.2-15.7) gm/dl Hct 32.9 L (34.1-44.9) % MCV 87.3 (79.4-94.8) fl MCH 28.4 (25.6-32.2) pg MCHC 32.5 (32.2-35.5) g/dl RDW Std Deviation 45.0 (36.4-46.3) fL Plt Count 257 (182-369) K/mm3 MPV 9.9 (9.4-12.3) fl Neut % (Auto) (34.0-71.1) % Lymph % (Auto) (19.3-51.7) % Blanco % (Auto) (4.7-12.5) % Eos % (Auto) (0.7-5.8) Baso % (Auto) (0.1-1.2) % Neut # (Auto) (1.56-6.13) K/mm3 Lymph # (Auto) (1.18-3.74) K/mm3 Blanco # (Auto) (0.24-0.36) K/mm3 Eos # (Auto) (0.04-0.36) K/mm3 Baso # (Auto) (0.01-0.08) K/mm3 Neutrophils % (Manual) 75 H (40-60) % Band Neutrophils % 0 (0-10) % Lymphocytes % (Manual) 10 L (20-40) % Atypical Lymphs % 0 % Monocytes % (Manual) 15 H (2-10) % Eosinophils % (Manual) 0 L (0.7-5.8) % Basophils % (Manual) 0 L (0.1-1.2) Platelet Estimate Adequate RBC Morph Comment Normal PT 11.7 (9.7-12.0) SECONDS INR 1.06 Sodium 133 L (136-145) mEq/L Potassium 2.6 L (3.5-5.1) mEq/L Chloride 96 L (98-107) mEq/L Carbon Dioxide 28 (21-32) mEq/L Anion Gap 11.6 (5-15) BUN 8 (7-18) mg/dL Creatinine 0.8 (0.55-1.02) mg/dL Est Cr Clr Drug Dosing 77.63 mL/min Estimated GFR (MDRD) > 60 (>60) mL/min BUN/Creatinine Ratio 10.0 L (14-18) Glucose 125 H (70-99) mg/dL Lactic Acid (0.4-2.0) mmol/L Calcium 8.1 L (8.5-10.1) mg/dL Magnesium (1.8-2.4) mg/dL Total Bilirubin 0.9 (0.2-1.0) mg/dL AST 35 (15-37) U/L ALT 43 (14-59) U/L Alkaline Phosphatase 70 (46-116) U/L C-Reactive Protein 27.7 H* (<1.0) mg/dL Total Protein 7.3 (6.4-8.2) g/dl Albumin 2.8 L (3.4-5.0) g/dl Globulin 4.5 gm/dL Albumin/Globulin Ratio 0.6 L (1-2) TSH 3rd Generation (0.358-3.74) uIU/mL Urine Color (Yellow) Urine Appearance (Clear) Urine pH (5.0-8.0) Ur Specific Mobile (1.005-1.030) Urine Protein (Negative) Urine Glucose (UA) (Negative) Urine Ketones (Negative) Urine Occult Blood (Negative) Urine Nitrite (Negative) Urine Bilirubin (Negative) Urine Urobilinogen (0.2-1.0) Ur Leukocyte Esterase (Negative) Urine RBC (0-5) /hpf Urine WBC (0-5) /hpf Ur Squamous Epith Cells (0-5) /hpf Urine Bacteria (FEW) /hpf Urine Mucus (FEW) /hpf Influenza Type A RNA (NEGATIVE) Influenza Type B RNA (NEGATIVE) SARS-CoV-2 RNA (LUCIA) (NEGATIVE) 03/30/21 03/30/21 03/30/21 Range/Units 11:40 12:08 17:20 WBC (3.98-10.04) K/mm3 RBC (3.98-5.22) M/mm3 Hgb (11.2-15.7) gm/dl Hct (34.1-44.9) % MCV (79.4-94.8) fl MCH (25.6-32.2) pg MCHC (32.2-35.5) g/dl RDW Std Deviation (36.4-46.3) fL Plt Count (182-369) K/mm3 MPV (9.4-12.3) fl Neut % (Auto) (34.0-71.1) % Lymph % (Auto) (19.3-51.7) % Blanco % (Auto) (4.7-12.5) % Eos % (Auto) (0.7-5.8) Baso % (Auto) (0.1-1.2) % Neut # (Auto) (1.56-6.13) K/mm3 Lymph # (Auto) (1.18-3.74) K/mm3 Blanco # (Auto) (0.24-0.36) K/mm3 Eos # (Auto) (0.04-0.36) K/mm3 Baso # (Auto) (0.01-0.08) K/mm3 Neutrophils % (Manual) (40-60) % Band Neutrophils % (0-10) % Lymphocytes % (Manual) (20-40) % Atypical Lymphs % % Monocytes % (Manual) (2-10) % Eosinophils % (Manual) (0.7-5.8) % Basophils % (Manual) (0.1-1.2) Platelet Estimate RBC Morph Comment PT (9.7-12.0) SECONDS INR Sodium (136-145) mEq/L Potassium (3.5-5.1) mEq/L Chloride (98-107) mEq/L Carbon Dioxide (21-32) mEq/L Anion Gap (5-15) BUN (7-18) mg/dL Creatinine (0.55-1.02) mg/dL Est Cr Clr Drug Dosing mL/min Estimated GFR (MDRD) (>60) mL/min BUN/Creatinine Ratio (14-18) Glucose (70-99) mg/dL Lactic Acid 1.5 (0.4-2.0) mmol/L Calcium (8.5-10.1) mg/dL Magnesium (1.8-2.4) mg/dL Total Bilirubin (0.2-1.0) mg/dL AST (15-37) U/L ALT (14-59) U/L Alkaline Phosphatase (46-116) U/L C-Reactive Protein (<1.0) mg/dL Total Protein (6.4-8.2) g/dl Albumin (3.4-5.0) g/dl Globulin gm/dL Albumin/Globulin Ratio (1-2) TSH 3rd Generation (0.358-3.74) uIU/mL Urine Color Yellow (Yellow) Urine Appearance Clear (Clear) Urine pH 7.0 (5.0-8.0) Ur Specific Mobile 1.020 (1.005-1.030) Urine Protein Negative (Negative) Urine Glucose (UA) Negative (Negative) Urine Ketones Negative (Negative) Urine Occult Blood 1+ H (Negative) Urine Nitrite Negative (Negative) Urine Bilirubin Negative (Negative) Urine Urobilinogen 0.2 (0.2-1.0) Ur Leukocyte Esterase Negative (Negative) Urine RBC 5-10 H (0-5) /hpf Urine WBC 5-10 H (0-5) /hpf Ur Squamous Epith Cells 10-20 H (0-5) /hpf Urine Bacteria Moderate H (FEW) /hpf Urine Mucus Not seen (FEW) /hpf Influenza Type A RNA Negative (NEGATIVE) Influenza Type B RNA Negative (NEGATIVE) SARS-CoV-2 RNA (LUCIA) Negative (NEGATIVE) 03/31/21 03/31/21 Range/Units 05:45 05:45 WBC 7.44 (3.98-10.04) K/mm3 RBC 3.54 L (3.98-5.22) M/mm3 Hgb 9.9 L (11.2-15.7) gm/dl Hct 31.6 L (34.1-44.9) % MCV 89.3 (79.4-94.8) fl MCH 28.0 (25.6-32.2) pg MCHC 31.3 L (32.2-35.5) g/dl RDW Std Deviation 45.8 (36.4-46.3) fL Plt Count 246 (182-369) K/mm3 MPV 9.8 (9.4-12.3) fl Neut % (Auto) 71.7 H (34.0-71.1) % Lymph % (Auto) 11.7 L (19.3-51.7) % Blanco % (Auto) 14.9 H (4.7-12.5) % Eos % (Auto) 0.9 (0.7-5.8) Baso % (Auto) 0.3 (0.1-1.2) % Neut # (Auto) 5.33 (1.56-6.13) K/mm3 Lymph # (Auto) 0.87 L (1.18-3.74) K/mm3 Blanco # (Auto) 1.11 H (0.24-0.36) K/mm3 Eos # (Auto) 0.07 (0.04-0.36) K/mm3 Baso # (Auto) 0.02 (0.01-0.08) K/mm3 Neutrophils % (Manual) (40-60) % Band Neutrophils % (0-10) % Lymphocytes % (Manual) (20-40) % Atypical Lymphs % % Monocytes % (Manual) (2-10) % Eosinophils % (Manual) (0.7-5.8) % Basophils % (Manual) (0.1-1.2) Platelet Estimate RBC Morph Comment PT (9.7-12.0) SECONDS INR Sodium 138 (136-145) mEq/L Potassium 3.0 L (3.5-5.1) mEq/L Chloride 100 (98-107) mEq/L Carbon Dioxide 26 (21-32) mEq/L Anion Gap 15.0 (5-15) BUN 7 (7-18) mg/dL Creatinine 0.6 (0.55-1.02) mg/dL Est Cr Clr Drug Dosing 103.50 mL/min Estimated GFR (MDRD) > 60 (>60) mL/min BUN/Creatinine Ratio 11.7 L (14-18) Glucose 110 H (70-99) mg/dL Lactic Acid (0.4-2.0) mmol/L Calcium 8.1 L (8.5-10.1) mg/dL Magnesium 2.1 (1.8-2.4) mg/dL Total Bilirubin (0.2-1.0) mg/dL AST (15-37) U/L ALT (14-59) U/L Alkaline Phosphatase (46-116) U/L C-Reactive Protein 26.7 H* (<1.0) mg/dL Total Protein (6.4-8.2) g/dl Albumin (3.4-5.0) g/dl Globulin gm/dL Albumin/Globulin Ratio (1-2) TSH 3rd Generation 0.871 (0.358-3.74) uIU/mL Urine Color (Yellow) Urine Appearance (Clear) Urine pH (5.0-8.0) Ur Specific Mobile (1.005-1.030) Urine Protein (Negative) Urine Glucose (UA) (Negative) Urine Ketones (Negative) Urine Occult Blood (Negative) Urine Nitrite (Negative) Urine Bilirubin (Negative) Urine Urobilinogen (0.2-1.0) Ur Leukocyte Esterase (Negative) Urine RBC (0-5) /hpf Urine WBC (0-5) /hpf Ur Squamous Epith Cells (0-5) /hpf Urine Bacteria (FEW) /hpf Urine Mucus (FEW) /hpf Influenza Type A RNA (NEGATIVE) Influenza Type B RNA (NEGATIVE) SARS-CoV-2 RNA (LUCIA) (NEGATIVE) Result Diagrams: 03/31/21 05:45 03/31/21 05:45 Sepsis Event Note - Evaluation Sepsis Screening Result: No Definite Risk - Focused Exam Vital Signs: Vital Signs Temp Pulse Resp BP Pulse Ox 03/31/21 03:47 98.2 F 80 20 109/57 L 98 03/31/21 00:13 97.5 F 81 20 103/50 L 99 03/30/21 21:35 97.5 F 03/30/21 21:05 102.4 F H 03/30/21 20:14 102.4 F H 95 20 117/66 95 - Problem List & Annotations (1) Pre-diabetes SNOMED Code(s): 883272371 Code(s): R73.03 - PREDIABETES Status: Acute Priority: Medium Current Visit: Yes (2) Cellulitis of foot, right SNOMED Code(s): 855621048 Code(s): L03.115 - CELLULITIS OF RIGHT LOWER LIMB Status: Acute Priority: High Current Visit: Yes (3) Hypertension SNOMED Code(s): 62851339 Code(s): I10 - ESSENTIAL (PRIMARY) HYPERTENSION Status: Chronic Priority: Medium Current Visit: Yes Qualifiers: Hypertension type: unspecified Qualified Code(s): I10 - Essential (primary) hypertension (4) Hypokalemia SNOMED Code(s): 91222735 Code(s): E87.6 - HYPOKALEMIA Status: Acute Priority: High Current Visit: Yes - Problem List Review Problem List Initiated/Reviewed/Updated: Yes - Plan Plan:: 35-year-old female with history of hypertension and psoriasis presents to the emergency department with right-sided foot pain, fever, and discharge. Admission: 03/30/2021 Cellulitis of the plantar surface of the right foot * Exquisitely tender and erythematous and warm right ball of the foot. * WBC of 10.6 with 75% neutrophils and no bands. CRP 27.7. Normal lactic acid of 1.5. * Blood cultures and Rocephin started in the emergency department. Hypokalemia * Potassium 2.6 * Likely secondary to poor oral intake and thiazide diuretic * Given 40 mEq p.o. in the emergency department followed by 40 mEq IV Hypertension * Home medications include atenolol, lisinopril, and hydrochlorothiazide * She did not receive her medications this morning. 03/31/2021 Prediabetes * A1c of 6.2% * Reports significant family history of diabetes This is a 35-year-old female admitted to the floor for management of her cellulitis of the plantar aspect of her right foot. Per the patient her pain has greatly improved. Erythema has improved and there is no real drainage. On prior exam there was a fluctuant area possibly noted we will therefore order a CT with contrast of the foot to ensure there is no abscess. Patient does have baseline plaque psoriasis of her hands and feet which can skew exam and labs. Her potassium today has improved to 3.0. We will continue supplementing this p.o. She has been complaining of a bit of a headache and does state she drinks quite a bit of caffeine so we will add as needed Fioricet. We will continue her hypertension medications. We will continue Rocephin 2 g IV and topical bacitracin pending lab results. Wound culture was not obtained. hCG was obtained and was negative. Leukocytosis has resolved. CRP remains elevated at 26.7 which again may be skewed. TSH was obtained today and was within normal limits. PT did see patient for wound therapy and has no concerns. Nursing may provide dressing changes. Plan * Admit to medical floor for IV antibiotics * CT with contrast of right foot * May need to consult orthopedics * Await blood cultures * Continue Rocephin and bacitracin cream * PT for wound therapy * Recheck CBC, CMP, CRP in the morning * Consistent carbohydrate diet * clinical staff educator consult for prediabetes * Dietitian consult for prediabetes * Continue to hold HCTZ. * VTE prophylaxis with Lovenox * CODE STATUS: Full code <John Bond Jr - Last Filed: 03/31/21 19:07> - Patient Data Vitals - Most Recent: Last Vital Signs Temp 97.2 F 03/31/21 11:54 Pulse 95 03/31/21 11:54 Resp 16 03/31/21 11:54 BP 110/60 03/31/21 11:54 Pulse Ox 97 03/31/21 11:54 I&O - Last 24 Hours: Intake & Output 03/31/21 03/31/21 03/31/21 06:59 14:59 22:59 Intake Total 1000 515 Output Total 1250 Balance -250 515 Lab Results Last 24 Hours: Laboratory Results - last 24 hr 03/31/21 03/31/21 03/31/21 Range/Units 05:45 05:45 05:45 WBC 7.44 (3.98-10.04) K/mm3 RBC 3.54 L (3.98-5.22) M/mm3 Hgb 9.9 L (11.2-15.7) gm/dl Hct 31.6 L (34.1-44.9) % MCV 89.3 (79.4-94.8) fl MCH 28.0 (25.6-32.2) pg MCHC 31.3 L (32.2-35.5) g/dl RDW Std Deviation 45.8 (36.4-46.3) fL Plt Count 246 (182-369) K/mm3 MPV 9.8 (9.4-12.3) fl Neut % (Auto) 71.7 H (34.0-71.1) % Lymph % (Auto) 11.7 L (19.3-51.7) % Blanco % (Auto) 14.9 H (4.7-12.5) % Eos % (Auto) 0.9 (0.7-5.8) Baso % (Auto) 0.3 (0.1-1.2) % Neut # (Auto) 5.33 (1.56-6.13) K/mm3 Lymph # (Auto) 0.87 L (1.18-3.74) K/mm3 Blanco # (Auto) 1.11 H (0.24-0.36) K/mm3 Eos # (Auto) 0.07 (0.04-0.36) K/mm3 Baso # (Auto) 0.02 (0.01-0.08) K/mm3 Sodium 138 (136-145) mEq/L Potassium 3.0 L (3.5-5.1) mEq/L Chloride 100 (98-107) mEq/L Carbon Dioxide 26 (21-32) mEq/L Anion Gap 15.0 (5-15) BUN 7 (7-18) mg/dL Creatinine 0.6 (0.55-1.02) mg/dL Est Cr Clr Drug Dosing 103.50 mL/min Estimated GFR (MDRD) > 60 (>60) mL/min BUN/Creatinine Ratio 11.7 L (14-18) Glucose 110 H (70-99) mg/dL Hemoglobin A1c 6.2 H ( - 5.6) % Calcium 8.1 L (8.5-10.1) mg/dL Magnesium 2.1 (1.8-2.4) mg/dL C-Reactive Protein 26.7 H* (<1.0) mg/dL TSH 3rd Generation 0.871 (0.358-3.74) uIU/mL HCG, Qual (NEGATIVE) 03/31/21 Range/Units 05:45 WBC (3.98-10.04) K/mm3 RBC (3.98-5.22) M/mm3 Hgb (11.2-15.7) gm/dl Hct (34.1-44.9) % MCV (79.4-94.8) fl MCH (25.6-32.2) pg MCHC (32.2-35.5) g/dl RDW Std Deviation (36.4-46.3) fL Plt Count (182-369) K/mm3 MPV (9.4-12.3) fl Neut % (Auto) (34.0-71.1) % Lymph % (Auto) (19.3-51.7) % Blanco % (Auto) (4.7-12.5) % Eos % (Auto) (0.7-5.8) Baso % (Auto) (0.1-1.2) % Neut # (Auto) (1.56-6.13) K/mm3 Lymph # (Auto) (1.18-3.74) K/mm3 Blanco # (Auto) (0.24-0.36) K/mm3 Eos # (Auto) (0.04-0.36) K/mm3 Baso # (Auto) (0.01-0.08) K/mm3 Sodium (136-145) mEq/L Potassium (3.5-5.1) mEq/L Chloride (98-107) mEq/L Carbon Dioxide (21-32) mEq/L Anion Gap (5-15) BUN (7-18) mg/dL Creatinine (0.55-1.02) mg/dL Est Cr Clr Drug Dosing mL/min Estimated GFR (MDRD) (>60) mL/min BUN/Creatinine Ratio (14-18) Glucose (70-99) mg/dL Hemoglobin A1c ( - 5.6) % Calcium (8.5-10.1) mg/dL Magnesium (1.8-2.4) mg/dL C-Reactive Protein (<1.0) mg/dL TSH 3rd Generation (0.358-3.74) uIU/mL HCG, Qual Negative (NEGATIVE) Med Orders - Current: Current Medications Acetaminophen (Acetaminophen 325 Mg Tab) 650 mg PO Q4H PRN PRN Reason: Pain (Mild 1-3)/fever Last Admin: 03/30/21 21:05 Dose: 650 mg Documented by: Acetaminophen/Butalbital/Caffeine (Acetaminophen/Butalbital/Caffeine 325-50-40 Mg Tab) 1 tab PO Q6H PRN PRN Reason: Headache Atenolol (Atenolol 50 Mg Tab) 50 mg PO DAILY [facility] Last Admin: 03/31/21 10:07 Dose: 50 mg Documented by: Bacitracin (Bacitracin Oint 15 Gm Tube) 0 gm TOP TID [facility] [place] Last Admin: 03/31/21 09:00 Dose: 1 applic Documented by: Calcium Carbonate/Glycine (Calcium Carbonate 500 Mg Tab.Chew) 1,000 mg PO Q2H PRN PRN Reason: Indigestion Last Admin: 03/31/21 08:51 Dose: 1,000 mg Documented by: Enoxaparin Sodium (Enoxaparin 40 Mg/0.4 Ml Syringe) 40 mg SUBCUT DAILY [facility] [place] Last Admin: 03/31/21 10:05 Dose: Not Given Documented by: Famotidine (Famotidine 20 Mg Tab) 20 mg PO DAILY [facility] [place] Last Admin: 03/31/21 10:08 Dose: 20 mg Documented by: Ceftriaxone Sodium 2 gm/ (Sodium Chloride) 100 mls @ 200 mls/hr IV Q24H [facility] [place] Last Admin: 03/31/21 12:47 Dose: 200 mls/hr Documented by: Ibuprofen (Ibuprofen 600 Mg Tab) 600 mg PO Q6H PRN PRN Reason: Pain (moderate 4-6) Lisinopril (Lisinopril 10 Mg Tab) 25 mg PO DAILY [facility] [place] Last Admin: 03/31/21 10:06 Dose: 25 mg Documented by: Potassium Chloride (Potassium Chloride 20 Meq Tab.Er) 40 meq PO BID [facility] [place] Stop: 03/31/21 21:01 Last Admin: 03/31/21 10:09 Dose: 40 meq Documented by: Sodium Chloride (Sodium Chloride 0.9% 10 Ml Syringe) 10 ml FLUSH ASDIRECTED PRN PRN Reason: Keep Vein Open Last Admin: 03/30/21 11:33 Dose: 10 ml Documented by: Temazepam (Temazepam 15 Mg Cap) 15 mg PO BEDTIME PRN PRN Reason: Sleep Venlafaxine HCl (Venlafaxine 37.5 Mg Cap.Er) 37.5 mg PO DAILY [facility] [place] Last Admin: 03/31/21 10:08 Dose: 37.5 mg Documented by: Discontinued Medications Hydrochlorothiazide (Hydrochlorothiazide 25 Mg Tab) 25 mg PO DAILY [facility] [place] Last Admin: 03/30/21 15:53 Dose: 25 mg Documented by: Sodium Chloride (Normal Saline) 1,000 mls @ 999 mls/hr IV ONETIME ONE Stop: 03/30/21 12:21 Last Admin: 03/30/21 11:33 Dose: 999 mls/hr Documented by: Potassium Chloride 10 meq/ (Premix) 100 mls @ 100 mls/hr IV Q1H [facility] [place] Stop: 03/30/21 16:14 Last Admin: 03/30/21 15:22 Dose: 100 mls/hr Documented by: Ceftriaxone Sodium 2 gm/ (Sodium Chloride) 100 mls @ 200 mls/hr IV ONETIME ONE Stop: 03/30/21 13:22 Last Admin: 03/30/21 13:06 Dose: 200 mls/hr Documented by: Iopamidol (Iopamidol 612 Mg/Ml 50 Ml Sdv) 50 ml IVPUSH ONETIME ONE Stop: 03/31/21 08:14 Last Admin: 03/31/21 09:48 Dose: 50 ml Documented by: Iopamidol (Iopamidol 612 Mg/Ml 100 Ml Bottle) 100 ml IVPUSH ONETIME ONE Stop: 03/31/21 08:14 Last Admin: 03/31/21 09:48 Dose: 100 ml Documented by: Metoclopramide HCl (Metoclopramide 10 Mg/2 Ml Sdv) 10 mg IVPUSH ONETIME ONE Stop: 03/30/21 11:22 Last Admin: 03/30/21 11:33 Dose: 10 mg Documented by: Potassium Chloride (Potassium Chloride 20 Meq Tab.Er) 40 meq PO ONETIME ONE Stop: 03/30/21 12:02 Last Admin: 03/30/21 12:14 Dose: 40 meq Documented by: Sodium Chloride (Sodium Chloride 0.9% 10 Ml Syringe) 10 ml FLUSH ONETIME PRN PRN Reason: IV FLUSH Stop: 03/31/21 18:00 Last Admin: 03/31/21 09:48 Dose: 10 ml Documented by: Venlafaxine HCl (Venlafaxine 37.5 Mg Tab) 37.5 mg PO DAILY [facility] Last Admin: 03/30/21 16:30 Dose: Not Given Documented by: - Patient Data Lab Results Last 24 hrs: Laboratory Results - last 24 hr 03/31/21 03/31/21 03/31/21 Range/Units 05:45 05:45 05:45 WBC 7.44 (3.98-10.04) K/mm3 RBC 3.54 L (3.98-5.22) M/mm3 Hgb 9.9 L (11.2-15.7) gm/dl Hct 31.6 L (34.1-44.9) % MCV 89.3 (79.4-94.8) fl MCH 28.0 (25.6-32.2) pg MCHC 31.3 L (32.2-35.5) g/dl RDW Std Deviation 45.8 (36.4-46.3) fL Plt Count 246 (182-369) K/mm3 MPV 9.8 (9.4-12.3) fl Neut % (Auto) 71.7 H (34.0-71.1) % Lymph % (Auto) 11.7 L (19.3-51.7) % Blanco % (Auto) 14.9 H (4.7-12.5) % Eos % (Auto) 0.9 (0.7-5.8) Baso % (Auto) 0.3 (0.1-1.2) % Neut # (Auto) 5.33 (1.56-6.13) K/mm3 Lymph # (Auto) 0.87 L (1.18-3.74) K/mm3 Blanco # (Auto) 1.11 H (0.24-0.36) K/mm3 Eos # (Auto) 0.07 (0.04-0.36) K/mm3 Baso # (Auto) 0.02 (0.01-0.08) K/mm3 Sodium 138 (136-145) mEq/L Potassium 3.0 L (3.5-5.1) mEq/L Chloride 100 (98-107) mEq/L Carbon Dioxide 26 (21-32) mEq/L Anion Gap 15.0 (5-15) BUN 7 (7-18) mg/dL Creatinine 0.6 (0.55-1.02) mg/dL Est Cr Clr Drug Dosing 103.50 mL/min Estimated GFR (MDRD) > 60 (>60) mL/min BUN/Creatinine Ratio 11.7 L (14-18) Glucose 110 H (70-99) mg/dL Hemoglobin A1c 6.2 H ( - 5.6) % Calcium 8.1 L (8.5-10.1) mg/dL Magnesium 2.1 (1.8-2.4) mg/dL C-Reactive Protein 26.7 H* (<1.0) mg/dL TSH 3rd Generation 0.871 (0.358-3.74) uIU/mL HCG, Qual (NEGATIVE) 03/31/21 Range/Units 05:45 WBC (3.98-10.04) K/mm3 RBC (3.98-5.22) M/mm3 Hgb (11.2-15.7) gm/dl Hct (34.1-44.9) % MCV (79.4-94.8) fl MCH (25.6-32.2) pg MCHC (32.2-35.5) g/dl RDW Std Deviation (36.4-46.3) fL Plt Count (182-369) K/mm3 MPV (9.4-12.3) fl Neut % (Auto) (34.0-71.1) % Lymph % (Auto) (19.3-51.7) % Blanco % (Auto) (4.7-12.5) % Eos % (Auto) (0.7-5.8) Baso % (Auto) (0.1-1.2) % Neut # (Auto) (1.56-6.13) K/mm3 Lymph # (Auto) (1.18-3.74) K/mm3 Blanco # (Auto) (0.24-0.36) K/mm3 Eos # (Auto) (0.04-0.36) K/mm3 Baso # (Auto) (0.01-0.08) K/mm3 Sodium (136-145) mEq/L Potassium (3.5-5.1) mEq/L Chloride (98-107) mEq/L Carbon Dioxide (21-32) mEq/L Anion Gap (5-15) BUN (7-18) mg/dL Creatinine (0.55-1.02) mg/dL Est Cr Clr Drug Dosing mL/min Estimated GFR (MDRD) (>60) mL/min BUN/Creatinine Ratio (14-18) Glucose (70-99) mg/dL Hemoglobin A1c ( - 5.6) % Calcium (8.5-10.1) mg/dL Magnesium (1.8-2.4) mg/dL C-Reactive Protein (<1.0) mg/dL TSH 3rd Generation (0.358-3.74) uIU/mL HCG, Qual Negative (NEGATIVE) Result Diagrams: 03/31/21 05:45 03/31/21 05:45 Sepsis Event Note - Focused Exam Vital Signs: Vital Signs Temp Pulse Resp BP Pulse Ox 03/31/21 11:54 97.2 F 95 16 110/60 97 03/31/21 11:38 98.6 F 92 20 109/57 L 97 03/31/21 10:07 92 124/75 03/31/21 10:06 124/75 03/31/21 08:50 98.8 F 92 19 124/75 95 - Plan Plan:: Case discussed in full. Agree with evaluation, assessment and plan.
[2021-03-31] MEDS ORDERED: Iopamidol 612 MG/ML 50 ML SDV IVPUSH ONE (08:13)
[2021-03-31] MEDS ORDERED: Iopamidol 612 MG/ML 100 ML Bottle IVPUSH ONE (08:13)
[2021-03-31] MEDS ORDERED: Sodium Chloride 0.9% 10 ML Syringe FLUSH PRN (08:13)
[2021-03-31] MEDS: Calcium Carbonate 500 MG Tab.Chew PO PRN (08:51)
[2021-03-31] MEDS: Bacitracin Oint 15 GM Tube TOP SCH ×3 (09:00→19:52)
[2021-03-31] MEDS: Enoxaparin 40 MG/0.4 ML Syringe SUBCUT SCH (10:05)
[2021-03-31] MEDS: Lisinopril 10 MG Tab PO SCH (10:06)
[2021-03-31] MEDS: Atenolol 50 MG Tab PO SCH (10:07)
[2021-03-31] MEDS: Venlafaxine 37.5 MG Cap.ER PO SCH (10:08)
[2021-03-31] MEDS: Famotidine 20 MG Tab PO SCH (10:08)
[2021-03-31] MEDS: Potassium Chloride 20 MEQ Tab.ER PO SCH ×2 (10:09→21:02)
[2021-03-31] MEDS ORDERED: Acetaminophen/Butalbital/Caffeine 325-50-40 MG Tab PO PRN (10:14)
[2021-03-31] MEDS ORDERED: cefTRIAXone 2 GM in Sodium Chloride 0.9% 100 ML IV SCH (13:00)
--- NOTE | 2021-04-01 09:07 | CT ---
CT right foot Technique: Multiple axial, sagittal and coronal images were obtained of the right foot. Intravenous contrast was not utilized. Comparison: Prior right foot radiographic study of 03/30/21. Findings: Plantar spur is noted. Small spur is also noted at the attachment of the Achilles tendon to the calcaneus. There is mild soft tissue swelling seen within the sole of the foot possibly due to mild cellulitis if this correlates with patient history. There is no focal fluid collections being seen to indicate an abscess. Bony structure shows no focal erosive change, fracture or dislocation. Incidental bone island is noted within the cuboid bone. Impression: 1. Mild soft tissue edema within the plantar regions of the foot raising the possibility of cellulitis. Please correlate. 2. No findings of abscess are seen. 3. Calcaneal spurs are present. Incidental bone island within the cuboid bone. Diagnostic code #2 [id number]
[2021-04-01] MEDS: Venlafaxine 37.5 MG Cap.ER PO SCH (09:08)
[2021-04-01] MEDS: Lisinopril 10 MG Tab PO SCH (09:08)
[2021-04-01] MEDS: Famotidine 20 MG Tab PO SCH (09:08)
[2021-04-01] MEDS: Atenolol 50 MG Tab PO SCH (09:10)
[2021-04-01] MEDS: Enoxaparin 40 MG/0.4 ML Syringe SUBCUT SCH (09:17)
--- NOTE | 2021-04-01 11:53 | PCM.DCSUM1 ---
<Candido Chicas - Last Filed: 04/01/21 11:56> Discharge Summary - Hospital Course HPI Initial Comments: 35-year-old female with history of severe psoriasis, followed by dermatology in [place], presents to the emergency department via [facility] for evaluation of fever. Patient states proxy 1 week ago she put Vaseline on her feet for her psoriasis as directed by her mold bunch trimmer, but she did not wrap it with Saran wrap. She states that she must have scratched the bottom of her foot in the middle the night and tore off a piece of the psoriatic plaque. She has had worsening pain since then and a fever as high as 105 at home. She was seen at the walk-in clinic, but not started on any treatment. She has been using Tylenol and ibuprofen alternately for the fever. 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 Now the foot is exquisitely tender especially over the ball of the right foot. She has yellow discharge emanating from the ball of foot. Patient does take lisinopril, hydrochlorothiazide, And atenolol for her hypertension. She was significantly low and her potassium. Potassium was 2.6. Diagnosis: Stroke: No - Discharge Data Discharge Date: 04/01/21 (Admit date: 03/30/2021) Discharge Disposition: Home, Self-Care 01 Condition: Good - Referral to Home Health Primary Care Physician: PCP None - Discharge Diagnosis/Problem(s) (1) Pre-diabetes SNOMED Code(s): 047480831 ICD Code: R73.03 - PREDIABETES Status: Acute Priority: Medium (2) Cellulitis of foot, right SNOMED Code(s): 159119139 ICD Code: L03.115 - CELLULITIS OF RIGHT LOWER LIMB Status: Acute Priority: High (3) Hypertension SNOMED Code(s): 48359564 ICD Code: I10 - ESSENTIAL (PRIMARY) HYPERTENSION Status: Chronic Priority: Medium Qualifiers: Hypertension type: unspecified Qualified Code(s): I10 - Essential (primary) hypertension (4) Hypokalemia SNOMED Code(s): 57797105 ICD Code: E87.6 - HYPOKALEMIA Status: Acute Priority: High - Patient Summary/Data Consults: Consultations 03/30/21 15:29 PT Evaluation and Treatment [CONS] Routine 03/31/21 10:12 Consult to Diabetic Nurse Specialist [CONS] Routine Consult to [employer] [CONS] Routine Labs Pending at D/C: Blood cultures negative x1 day Recommended Follow-up Testing/Procedures: Follow-up with primary care provider within 7 to 10 days of discharge, sooner if needed. * Ulceration on ball of right foot which is healing. Patient instructed to change dressings daily. * Potassium noted to be very low at 2.6 on admission and was supplemented. * Patient discharged on 3 more days of 20 mg p.o. potassium supplementation. Please recheck this in clinic. * Consider medication changes to assist with potassium retention. * Patient discharged on 5 days of 4 times daily 500 mg Keflex * Patient noted to be prediabetic with a hemoglobin A1c of 6.2%. Willian diet and lifestyle changes. Patient did see health educator and dietitian. Please follow-up on this. Follow-up with dermatology as prior. Hospital Course: 35-year-old female admitted to the floor due to cellulitis and ulceration on the plantar aspect of her right foot. She also noted significant foot pain, fever, and a clear yellow drainage. On admission foot was noted to be exquisitely tender and warm. WBC was mildly elevated at 10.6. CRP was elevated 27.7 however this is likely skewed due to her chronic psoriasis. She does have noted plaque psoriasis to bilateral hands and feet. Potassium on admission was quite low at 2.6. She does have baseline hypertension and her medications were continued for this. She does note a strong family history of diabetes and she is obese with a BMI of 43.4. A1c was obtained and was 6.2. We did place her on a consistent carbohydrate diet and she did see our health educator and dietitian who recommended lifestyle changes. Potassium continued to be supplemented utilizing 40 M EQ twice daily and this proved to 3.5 on discharge. We will continue her on 3 more days of 20 mill equivalent potassium at discharge. Of note the patient is on HCTZ and may benefit from a medication change. She was complaining of headaches which did improve. TSH was obtained and was within normal limits. Physical therapy did see the patient for wound care and recommended daily dressing changes with nursing to provide these changes. There was some concern on admission of a possibly fluctuant area and a CT scan of her foot was obtained with contrast which showed no signs of any abscess but did have mild edema noted raising the possibility of cellulitis. She was receiving Rocephin in the ED and was given Bactroban topically briefly while here. She will be discharged on 500 mg Keflex 4 times daily for 5 more days. She was instructed to change her dressing daily. She was instructed to elevate the extremity and avoid wearing shoes or boots for long periods of time. She states she is an EMT has not scheduled to work until next week. Recommend follow-up with primary care provider within 7 to 10 days of discharge, sooner if needed. Recommend repeat CBC, CMP, and magnesium in follow-up. She was instructed to continue to follow-up with her mold bunch trimmer as per prior. She was instructed of the warning signs of worsening infection including fever, purulent drainage, worsening pain, worsening erythema. She is discharged home today. - Patient Instructions Diet: Diabetic Diet Activity: As Tolerated, Rest and Relax Today Driving: Do Not Drive Notify Provider of: Fever, Increased Pain, Swelling and Redness, Drainage, Nausea and/or Vomiting Other/Special Instructions: Follow-up with primary care provider within 7-10 days, sooner if needed. Follow-up with dermatology as scheduled. Resume home medications as directed. You were prescribed an antibiotic you will take 4 times a day. Take this until completed, even if you are feeling 100% better. Recommend exercise and watching your diet as we discussed as you are pre- diabetic. Change dressing daily on your foot as instructed by nursing. Stay off of your foot as much as possible. Elevate your leg. Avoid wearing shoes or boots as much as possible. Monitor for signs of infection such as pus draining from the wound, worseing redness, pain or heat. Your potassium was low here and was supplemented. You will be prescribed a short course of daily potassium supplementation. Take this as prescribed. Your primary care provider can re- check your labs and follow-up with this. Should symptoms return or worsen contact primary care provider or return to the Emergency Department. - Discharge Plan *PRESCRIPTION DRUG MONITORING PROGRAM REVIEWED*: No *COPY OF PRESCRIPTION DRUG MONITORING REPORT IN PATIENT AARON: No Prescriptions/Med Rec: cephALEXin [Keflex] 500 mg PO QID #20 cap Potassium Chloride 20 meq PO DAILY #3 tab.er.prt Home Medications: Home Meds Venlafaxine HCl [Venlafaxine ER] 37.5 mg PO DAILY 03/30/21 [History] atenoloL [Atenolol] 50 mg PO DAILY 03/30/21 [History] hydroCHLOROthiazide [Hydrochlorothiazide] 25 mg PO DAILY 03/30/21 [History] lisinopriL [Lisinopril] 25 mg PO DAILY 03/30/21 [History] Potassium Chloride 20 meq PO DAILY #3 tab.er.prt 04/01/21 [Rx] cephALEXin [Keflex] 500 mg PO QID #20 cap 04/01/21 [Rx] Oxygen Therapy Mode: Room Air Patient Handouts: Prediabetes, Cellulitis, Adult, [id number], Prediabetes Eating Plan, Sepsis, Self Care, Adult Forms: ED Department Discharge Referrals: Bee, [facility] [Other] (Patient will follow up with who ever is available. Attempted to make appt. no answer. Please have he patient make own appt.) Dermatology, Provider [Other] (Continue to follow up with your Dermatology as needed, Patient just saw her couple of months ago.) margaret cardona [Other] - 04/09/21 12:00 pm (This is to establish care and hospital follow up visit Please arrive at 12:00 for check in) - Discharge Summary/Plan Comment DC Time >30 min.: Yes Total # of Minutes for Discharge Time: 45 - General Info Date of Service: 04/01/21 Functional Status: Reports: Pain Controlled, Tolerating Diet, Ambulating, Urinating. Denies: New Symptoms - Review of Systems General: Reports: No Symptoms. Denies: Fever, Weakness, Fatigue, Malaise, Chills HEENT: Reports: No Symptoms. Denies: Headaches, Sore Throat Pulmonary: Reports: No Symptoms. Denies: Shortness of Breath, Cough, Wheezing Cardiovascular: Reports: No Symptoms. Denies: Chest Pain, Palpitations, Dyspnea on Exertion, Edema Gastrointestinal: Reports: No Symptoms. Denies: Abdominal Pain, Constipation, Diarrhea, Nausea, Vomiting Genitourinary: Reports: No Symptoms. Denies: Pain Musculoskeletal: Reports: Foot Pain (minimal right ) Skin: Reports: No Symptoms. Denies: Cyanosis Neurological: Reports: No Symptoms, Difficulty Walking (minimal ). Denies: Confusion, Dizziness, Headache, Numbness, Paresthesia, Pre-Existing Deficit, Seizure, Syncope, Tingling, Tremors, Trouble Speaking, Weakness, Gait Disturbance Psychiatric: Reports: No Symptoms - Patient Data Vitals - Most Recent: Last Vital Signs Temp 96.1 F L 04/01/21 08:30 Pulse 80 04/01/21 09:10 Resp 15 04/01/21 08:30 BP 101/64 04/01/21 09:10 Pulse Ox 96 04/01/21 08:30 Weight - Most Recent: 237 lb 3.2 oz I&O - Last 24 hours: Intake & Output 03/31/21 04/01/21 04/01/21 22:59 06:59 14:59 Intake Total 515 Balance 515 Lab Results - Last 24 hrs: Laboratory Results - last 24 hr 04/01/21 04/01/21 Range/Units 06:17 06:17 WBC 6.19 (3.98-10.04) K/mm3 RBC 3.59 L (3.98-5.22) M/mm3 Hgb 10.0 L (11.2-15.7) gm/dl Hct 31.9 L (34.1-44.9) % MCV 88.9 (79.4-94.8) fl MCH 27.9 (25.6-32.2) pg MCHC 31.3 L (32.2-35.5) g/dl RDW Std Deviation 45.9 (36.4-46.3) fL Plt Count 271 (182-369) K/mm3 MPV 9.6 (9.4-12.3) fl Neut % (Auto) 66.3 (34.0-71.1) % Lymph % (Auto) 18.4 L (19.3-51.7) % Gooding % (Auto) 12.6 H (4.7-12.5) % Eos % (Auto) 1.9 (0.7-5.8) Baso % (Auto) 0.3 (0.1-1.2) % Neut # (Auto) 4.10 (1.56-6.13) K/mm3 Lymph # (Auto) 1.14 L (1.18-3.74) K/mm3 [place] # (Auto) 0.78 H (0.24-0.36) K/mm3 Eos # (Auto) 0.12 (0.04-0.36) K/mm3 Baso # (Auto) 0.02 (0.01-0.08) K/mm3 Sodium 137 (136-145) mEq/L Potassium 3.5 (3.5-5.1) mEq/L Chloride 100 (98-107) mEq/L Carbon Dioxide 27 (21-32) mEq/L Anion Gap 13.5 (5-15) BUN 7 (7-18) mg/dL Creatinine 0.6 (0.55-1.02) mg/dL Est Cr Clr Drug Dosing 103.50 mL/min Estimated GFR (MDRD) > 60 (>60) mL/min BUN/Creatinine Ratio 11.7 L (14-18) Glucose 101 H (70-99) mg/dL Calcium 8.1 L (8.5-10.1) mg/dL Total Bilirubin 0.5 (0.2-1.0) mg/dL AST 48 H (15-37) U/L ALT 70 H (14-59) U/L Alkaline Phosphatase 101 (46-116) U/L C-Reactive Protein 22.0 H* (<1.0) mg/dL Total Protein 6.6 (6.4-8.2) g/dl Albumin 2.6 L (3.4-5.0) g/dl Globulin 4.0 gm/dL Albumin/Globulin Ratio 0.7 L (1-2) JUAN Results - Last 24 hrs: Microbiology 03/30/21 11:43 Blood Culture - Preliminary Blood - Venous - Lab Draw 03/30/21 11:40 Blood Culture - Preliminary Blood - Venous Med Orders - Current: Current Medications Acetaminophen (Acetaminophen 325 Mg Tab) 650 mg PO Q4H PRN PRN Reason: Pain (Mild 1-3)/fever Last Admin: 03/30/21 21:05 Dose: 650 mg Documented by: Acetaminophen/Butalbital/Caffeine (Acetaminophen/Butalbital/Caffeine 325-50-40 Mg Tab) 1 tab PO Q6H PRN PRN Reason: Headache Atenolol (Atenolol 50 Mg Tab) 50 mg PO DAILY [facility] Last Admin: 04/01/21 09:10 Dose: 50 mg Documented by: Calcium Carbonate/Glycine (Calcium Carbonate 500 Mg Tab.Chew) 1,000 mg PO Q2H PRN PRN Reason: Indigestion Last Admin: 03/31/21 08:51 Dose: 1,000 mg Documented by: Enoxaparin Sodium (Enoxaparin 40 Mg/0.4 Ml Syringe) 40 mg SUBCUT DAILY [facility] Last Admin: 04/01/21 09:17 Dose: Not Given Documented by: Famotidine (Famotidine 20 Mg Tab) 20 mg PO DAILY [facility] Last Admin: 04/01/21 09:08 Dose: 20 mg Documented by: Ceftriaxone Sodium 2 gm/ (Sodium Chloride) 100 mls @ 200 mls/hr IV Q24H [facility] Last Admin: 03/31/21 12:47 Dose: 200 mls/hr Documented by: Ibuprofen (Ibuprofen 600 Mg Tab) 600 mg PO Q6H PRN PRN Reason: Pain (moderate 4-6) Lisinopril (Lisinopril 10 Mg Tab) 25 mg PO DAILY [facility] Last Admin: 04/01/21 09:08 Dose: 25 mg Documented by: Sodium Chloride (Sodium Chloride 0.9% 10 Ml Syringe) 10 ml FLUSH ASDIRECTED PRN PRN Reason: Keep Vein Open Last Admin: 03/30/21 11:33 Dose: 10 ml Documented by: Temazepam (Temazepam 15 Mg Cap) 15 mg PO BEDTIME PRN PRN Reason: Sleep Venlafaxine HCl (Venlafaxine 37.5 Mg Cap.Er) 37.5 mg PO DAILY [facility] Last Admin: 04/01/21 09:08 Dose: 37.5 mg Documented by: Discontinued Medications Bacitracin (Bacitracin Oint 15 Gm Tube) 0 gm TOP TID [facility] Last Admin: 03/31/21 19:52 Dose: Not Given Documented by: Hydrochlorothiazide (Hydrochlorothiazide 25 Mg Tab) 25 mg PO DAILY [facility] Last Admin: 03/30/21 15:53 Dose: 25 mg Documented by: Sodium Chloride (Normal Saline) 1,000 mls @ 999 mls/hr IV ONETIME ONE Stop: 03/30/21 12:21 Last Admin: 03/30/21 11:33 Dose: 999 mls/hr Documented by: Potassium Chloride 10 meq/ (Premix) 100 mls @ 100 mls/hr IV Q1H [facility] Stop: 03/30/21 16:14 Last Admin: 03/30/21 15:22 Dose: 100 mls/hr Documented by: Ceftriaxone Sodium 2 gm/ (Sodium Chloride) 100 mls @ 200 mls/hr IV ONETIME ONE Stop: 03/30/21 13:22 Last Admin: 03/30/21 13:06 Dose: 200 mls/hr Documented by: Iopamidol (Iopamidol 612 Mg/Ml 50 Ml Sdv) 50 ml IVPUSH ONETIME ONE Stop: 03/31/21 08:14 Last Admin: 03/31/21 09:48 Dose: 50 ml Documented by: Iopamidol (Iopamidol 612 Mg/Ml 100 Ml Bottle) 100 ml IVPUSH ONETIME ONE Stop: 03/31/21 08:14 Last Admin: 03/31/21 09:48 Dose: 100 ml Documented by: Metoclopramide HCl (Metoclopramide 10 Mg/2 Ml Sdv) 10 mg IVPUSH ONETIME ONE Stop: 03/30/21 11:22 Last Admin: 03/30/21 11:33 Dose: 10 mg Documented by: Potassium Chloride (Potassium Chloride 20 Meq Tab.Er) 40 meq PO ONETIME ONE Stop: 03/30/21 12:02 Last Admin: 03/30/21 12:14 Dose: 40 meq Documented by: Potassium Chloride (Potassium Chloride 20 Meq Tab.Er) 40 meq PO BID [facility] Stop: 03/31/21 21:01 Last Admin: 03/31/21 21:02 Dose: 40 meq Documented by: Sodium Chloride (Sodium Chloride 0.9% 10 Ml Syringe) 10 ml FLUSH ONETIME PRN PRN Reason: IV FLUSH Stop: 03/31/21 18:00 Last Admin: 03/31/21 09:48 Dose: 10 ml Documented by: Venlafaxine HCl (Venlafaxine 37.5 Mg Tab) 37.5 mg PO DAILY [facility] Last Admin: 03/30/21 16:30 Dose: Not Given Documented by: - Exam Quality Assessment: Reports: DVT Prophylaxis. Denies: Supplemental Oxygen, Urine Catheter General: Reports: Alert, Oriented, Cooperative, No Acute Distress HEENT: Reports: Pupils Equal, Pupils Reactive, Mucous Membr. Moist/[place] Neck: Reports: Supple, Trachea Midline Lungs: Reports: Clear to Auscultation, Normal Respiratory Effort Cardiovascular: Reports: Regular Rate, Regular Rhythm GI/Abdominal Exam: Normal Bowel Sounds, Soft, Non-Tender, No Organomegaly, No Distention, No Abnormal Bruit, No Mass, Pelvis Stable (Female) Exam: Deferred Rectal (Female) Exam: Deferred Back Exam: Reports: Normal Inspection, Full Range of Motion Extremities: Normal Range of Motion, Non-Tender, No Pedal Edema, Normal Capillary Refill, Other (Ulceration noted on plantar aspect of right foot with bandage in place. Significant psoriatic plaques on bilateral hands and feet - chronic ) Skin: Reports: Warm, Dry, Intact Wound/Incisions: Reports: Healing Well, Dressing Dry and Intact, No Drainage. Denies: Erythema Neurological: Reports: No New Focal Deficit Psy/Mental Status: Reports: Alert, Normal Affect, Normal Mood <RondaJohn Pickett Jr - Last Filed: 04/01/21 20:11> Discharge Summary - Referral to Home Health Primary Care Physician: PCP None - Patient Summary/Data Consults: Consultations 03/30/21 15:29 PT Evaluation and Treatment [CONS] Routine 03/31/21 10:12 Consult to Diabetic Nurse Specialist [CONS] Routine Consult to [employer] [CONS] Routine - Discharge Summary/Plan Comment Discharge Summary/Plan Comment: Case discussed in full. Agree with evaluation, assessment and plan. - Patient Data Vitals - Most Recent: Last Vital Signs Temp 96.1 F L 04/01/21 08:30 Pulse 80 04/01/21 09:10 Resp 15 04/01/21 08:30 BP 101/64 04/01/21 09:10 Pulse Ox 96 04/01/21 08:30 I&O - Last 24 hours: Intake & Output 04/01/21 04/01/21 04/01/21 06:59 14:59 22:59 Intake Total 535 Balance 535 Lab Results - Last 24 hrs: Laboratory Results - last 24 hr 04/01/21 04/01/21 Range/Units 06:17 06:17 WBC 6.19 (3.98-10.04) K/mm3 RBC 3.59 L (3.98-5.22) M/mm3 Hgb 10.0 L (11.2-15.7) gm/dl Hct 31.9 L (34.1-44.9) % MCV 88.9 (79.4-94.8) fl MCH 27.9 (25.6-32.2) pg MCHC 31.3 L (32.2-35.5) g/dl RDW Std Deviation 45.9 (36.4-46.3) fL Plt Count 271 (182-369) K/mm3 MPV 9.6 (9.4-12.3) fl Neut % (Auto) 66.3 (34.0-71.1) % Lymph % (Auto) 18.4 L (19.3-51.7) % Gooding % (Auto) 12.6 H (4.7-12.5) % Eos % (Auto) 1.9 (0.7-5.8) Baso % (Auto) 0.3 (0.1-1.2) % Neut # (Auto) 4.10 (1.56-6.13) K/mm3 Lymph # (Auto) 1.14 L (1.18-3.74) K/mm3 [place] # (Auto) 0.78 H (0.24-0.36) K/mm3 Eos # (Auto) 0.12 (0.04-0.36) K/mm3 Baso # (Auto) 0.02 (0.01-0.08) K/mm3 Sodium 137 (136-145) mEq/L Potassium 3.5 (3.5-5.1) mEq/L Chloride 100 (98-107) mEq/L Carbon Dioxide 27 (21-32) mEq/L Anion Gap 13.5 (5-15) BUN 7 (7-18) mg/dL Creatinine 0.6 (0.55-1.02) mg/dL Est Cr Clr Drug Dosing 103.50 mL/min Estimated GFR (MDRD) > 60 (>60) mL/min BUN/Creatinine Ratio 11.7 L (14-18) Glucose 101 H (70-99) mg/dL Calcium 8.1 L (8.5-10.1) mg/dL Total Bilirubin 0.5 (0.2-1.0) mg/dL AST 48 H (15-37) U/L ALT 70 H (14-59) U/L Alkaline Phosphatase 101 (46-116) U/L C-Reactive Protein 22.0 H* (<1.0) mg/dL Total Protein 6.6 (6.4-8.2) g/dl Albumin 2.6 L (3.4-5.0) g/dl Globulin 4.0 gm/dL Albumin/Globulin Ratio 0.7 L (1-2) JUAN Results - Last 24 hrs: Microbiology 03/30/21 11:43 Blood Culture - Preliminary Blood - Venous - Lab Draw 03/30/21 11:40 Blood Culture - Preliminary Blood - Venous Med Orders - Current: Current Medications Discontinued Medications Acetaminophen (Acetaminophen 325 Mg Tab) 650 mg PO Q4H PRN PRN Reason: Pain (Mild 1-3)/fever Last Admin: 03/30/21 21:05 Dose: 650 mg Documented by: Acetaminophen/Butalbital/Caffeine (Acetaminophen/Butalbital/Caffeine 325-50-40 Mg Tab) 1 tab PO Q6H PRN PRN Reason: Headache Atenolol (Atenolol 50 Mg Tab) 50 mg PO DAILY [facility] Last Admin: 04/01/21 09:10 Dose: 50 mg Documented by: Bacitracin (Bacitracin Oint 15 Gm Tube) 0 gm TOP TID [facility] Last Admin: 03/31/21 19:52 Dose: Not Given Documented by: Calcium Carbonate/Glycine (Calcium Carbonate 500 Mg Tab.Chew) 1,000 mg PO Q2H PRN PRN Reason: Indigestion Last Admin: 03/31/21 08:51 Dose: 1,000 mg Documented by: Enoxaparin Sodium (Enoxaparin 40 Mg/0.4 Ml Syringe) 40 mg SUBCUT DAILY [facility] Last Admin: 04/01/21 09:17 Dose: Not Given Documented by: Famotidine (Famotidine 20 Mg Tab) 20 mg PO DAILY [facility] Last Admin: 04/01/21 09:08 Dose: 20 mg Documented by: Hydrochlorothiazide (Hydrochlorothiazide 25 Mg Tab) 25 mg PO DAILY [facility] Last Admin: 03/30/21 15:53 Dose: 25 mg Documented by: Sodium Chloride (Normal Saline) 1,000 mls @ 999 mls/hr IV ONETIME ONE Stop: 03/30/21 12:21 Last Admin: 03/30/21 11:33 Dose: 999 mls/hr Documented by: Potassium Chloride 10 meq/ (Premix) 100 mls @ 100 mls/hr IV Q1H [facility] Stop: 03/30/21 16:14 Last Admin: 03/30/21 15:22 Dose: 100 mls/hr Documented by: Ceftriaxone Sodium 2 gm/ (Sodium Chloride) 100 mls @ 200 mls/hr IV ONETIME ONE Stop: 03/30/21 13:22 Last Admin: 03/30/21 13:06 Dose: 200 mls/hr Documented by: Ceftriaxone Sodium 2 gm/ (Sodium Chloride) 100 mls @ 200 mls/hr IV Q24H [facility] Last Admin: 03/31/21 12:47 Dose: 200 mls/hr Documented by: Ibuprofen (Ibuprofen 600 Mg Tab) 600 mg PO Q6H PRN PRN Reason: Pain (moderate 4-6) Iopamidol (Iopamidol 612 Mg/Ml 50 Ml Sdv) 50 ml IVPUSH ONETIME ONE Stop: 03/31/21 08:14 Last Admin: 03/31/21 09:48 Dose: 50 ml Documented by: Iopamidol (Iopamidol 612 Mg/Ml 100 Ml Bottle) 100 ml IVPUSH ONETIME ONE Stop: 03/31/21 08:14 Last Admin: 03/31/21 09:48 Dose: 100 ml Documented by: Lisinopril (Lisinopril 10 Mg Tab) 25 mg PO DAILY [facility] Last Admin: 04/01/21 09:08 Dose: 25 mg Documented by: Metoclopramide HCl (Metoclopramide 10 Mg/2 Ml Sdv) 10 mg IVPUSH ONETIME ONE Stop: 03/30/21 11:22 Last Admin: 03/30/21 11:33 Dose: 10 mg Documented by: Potassium Chloride (Potassium Chloride 20 Meq Tab.Er) 40 meq PO ONETIME ONE Stop: 03/30/21 12:02 Last Admin: 03/30/21 12:14 Dose: 40 meq Documented by: Potassium Chloride (Potassium Chloride 20 Meq Tab.Er) 40 meq PO BID [facility] Stop: 03/31/21 21:01 Last Admin: 03/31/21 21:02 Dose: 40 meq Documented by: Sodium Chloride (Sodium Chloride 0.9% 10 Ml Syringe) 10 ml FLUSH ASDIRECTED PRN PRN Reason: Keep Vein Open Last Admin: 03/30/21 11:33 Dose: 10 ml Documented by: Sodium Chloride (Sodium Chloride 0.9% 10 Ml Syringe) 10 ml FLUSH ONETIME PRN PRN Reason: IV FLUSH Stop: 03/31/21 18:00 Last Admin: 03/31/21 09:48 Dose: 10 ml Documented by: Temazepam (Temazepam 15 Mg Cap) 15 mg PO BEDTIME PRN PRN Reason: Sleep Venlafaxine HCl (Venlafaxine 37.5 Mg Tab) 37.5 mg PO DAILY [facility] Last Admin: 03/30/21 16:30 Dose: Not Given Documented by: Venlafaxine HCl (Venlafaxine 37.5 Mg Cap.Er) 37.5 mg PO DAILY [facility] Last Admin: 04/01/21 09:08 Dose: 37.5 mg Documented by:
== END 2021-04-01 12:30 | disposition home or self-care (01) | DRG 603 ==
LOC: JD.ED 11:03 → JD.MS 13:18 → JD.OB 03-31 12:10
PROVIDERS: ADMIT Family Medicine; ATTEND Family Medicine
DX: L03.115 Cellulitis of right lower limb (principal); Z68.41 Body mass index [BMI] 40.0-44.9, adult; I10 Essential (primary) hypertension; R73.03 Prediabetes; E87.6 Hypokalemia; L97.519 Non-pressure chronic ulcer of other part of right foot with unspecified severity; L40.9 Psoriasis, unspecified; E66.9 Obesity, unspecified; H54.7 Unspecified visual loss; F32.A Depression, unspecified; Z20.822 Contact with and (suspected) exposure to COVID-19; Z83.3 Family history of diabetes mellitus; Z79.899 Other long term (current) drug therapy; Z91.030 Bee allergy status; Z88.7 Allergy status to serum and vaccine; Z91.040 Latex allergy status; Z90.49 Acquired absence of other specified parts of digestive tract; Z87.891 Personal history of nicotine dependence
CPT/HCPCS: 0240U; 36415; 71045; 71045-26; 73620-26-RT; 73620-RT; 73701-26-RT; 73701-RT; 80048; 80053; 81001; 83036; 83605; 83735; 84443; 84703; 85007; 85025; 85027; 85610; 86140; 87040; 96365; 96375; 99223; 99232; 99239; 99285-25; A9270-GY; J0696; J2765; J3480; J7030; Q9967

== ENCOUNTER 2021-12-11 18:28 | Emergency (ER) | payer BC ==
[2021-12-11] MEDS ORDERED: Potassium Chloride 20 MEQ Tab.ER PO ONE (20:29)
[2021-12-11] MEDS ORDERED: cefTRIAXone 1 GM, Lidocaine 1% 2.1 ML IM ONE ×2 (20:48)
== END 2021-12-11 21:05 | disposition home or self-care (01) ==
LOC: JD.ED 18:28 → SUPCPDRO 18:28 → JD.ED 21:05
DX: L03.115 Cellulitis of right lower limb (principal); I10 Essential (primary) hypertension; Z91.030 Bee allergy status; Z88.7 Allergy status to serum and vaccine; Z91.040 Latex allergy status; Z79.899 Other long term (current) drug therapy; Z86.16 Personal history of COVID-19; Z90.49 Acquired absence of other specified parts of digestive tract
CPT/HCPCS: 36415; 80053; 85025; 86140; 96372; 99283; A9270; J0696